=== PATIENT | female | born 1965 | race Caucasian/White ===

== ENCOUNTER 2021-11-05 10:09 | Emergency (ER) | payer OTHER, SELFPAY ==
[2021-11-05 10:22] VITALS: BP 148/78; PULSE 66; RESP 18; TEMP 36.3; O2SAT 98
--- NOTE | 2021-11-05 10:47 | ED.URI ---
HPI - URI/Sore Throat General Chief Complaint: Upper Respiratory Infection Stated Complaint: Cough Time Seen by Provider: 11/05/21 10:32 Source: patient and RN notes reviewed Mode of arrival: ambulatory Limitations: no limitations History of Present Illness HPI Narrative: Patient presents today complaining of an 8-day history of cough. Associated symptoms include mild intermittent shortness of breath, headache and fatigue. At the beginning of her illness she complained of rhinorrhea and congestion, which have since resolved. Patient has been taking DayQuil, NyQuil, and Mucinex without relief. 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 History of A. fib and COPD. Smokes 1 pack/day. MD elicited complaint: cough Related Data Home Medications Medication Instructions Recorded Confirmed apixaban [Eliquis] 5 mg PO DAILY 11/05/21 11/05/21 atorvastatin 20 mg PO DAILY 11/05/21 11/05/21 gabapentin 600 mg PO DAILY 11/05/21 11/05/21 lisinopril 20 mg PO DAILY 11/05/21 11/05/21 metoprolol tartrate 25 mg PO DAILY 11/05/21 11/05/21 zolpidem 5 mg PO PRN PRN 11/05/21 11/05/21 Allergies Allergy/AdvReac Type Severity Reaction Status Date / Time No Known Allergies Allergy Verified 11/05/21 10:33 Review of Systems Review of Systems: CONSTITUTIONAL: Denies body aches, fever, chills, or sweats.+ Fatigue EYES: Denies visual changes, redness, or discharge. ENT: Denies rhinorrhea, congestion, sore throat, or otalgia. CARDIOVASCULAR: Denies chest pain, palpitations, or edema. RESPIRATORY: + Cough, shortness of breath GASTROINTESTINAL: Denies abdominal pain, nausea, vomiting, or diarrhea. GENITOURINARY: Denies dysuria or hematuria. SKIN: Denies rash, itching, or wounds. MUSCULOSKELETAL: Denies back pain, joint pain, or myalgia. NEUROLOGIC: Denies numbness, tingling, or weakness.+ Headache PSYCH: Denies depression or anxiety. [facility] Past Medical History Medical History (Updated 11/05/21 @ 10:55 by Ruth Santiago, [employer], [employer]) A-fib COPD (chronic obstructive pulmonary disease) High cholesterol Social History Social History (Updated 11/05/21 @ 10:53 by Ruth Santiago, [facility], ) Smoking packs per day: 1 Smoking cigarettes per day: 20.0 Smoking status: Current every day smoker Tobacco type: cigarettes Comments At time of signature, I have reviewed and agree with nursing past medical, surgical, social and family history unless otherwise noted. Please see nursing chart for further information. There is no relevant family history pertinent to the presenting complaint Exam Narrative: GENERAL: Well-appearing, well-nourished, and in no acute distress. HEAD: Normocephalic, atraumatic. EYES: EOMI. No redness or drainage. Conjunctivae normal. ENT: Mucous membranes pink and moist. Nares clear. No rhinorrhea. TMs normal bilaterally with bilateral middle ear effusions without evidence of infection. Throat normal. Uvula midline. NECK: Normal AROM. Supple. No lymphadenopathy. CHEST: No respiratory distress. Clear to auscultation. HEART: Regular rate and rhythm. No murmur appreciated. Normal peripheral pulses. EXTREMITIES: Normal range of motion. No edema. SKIN: Warm, dry, no rash. Capillary refill normal. Normal skin turgor. NEURO: No focal deficits. Alert and oriented x3. Gait steady. PSYCH: Normal affect. No signs of depression or anxiety. Course Course Level of Care: Express Care Visit Vital Signs Vital signs: Vital Signs Temperature 97.4 F L 11/05/21 10:22 Pulse Rate 66 11/05/21 10:22 Respiratory Rate 18 11/05/21 10:22 Blood Pressure 148/78 H 11/05/21 10:22 Pulse Oximetry 98 11/05/21 10:22 Temperature 97.4 F L 11/05/21 10:22 Pulse Rate 66 11/05/21 10:22 Respiratory Rate 18 11/05/21 10:22 Blood Pressure 148/78 H 11/05/21 10:22 Pulse Oximetry 98 11/05/21 10:22 Reviewed. Pt has been instructed to follow up with her PCP regarding her elevated blood pressure today. KWAKU JUAREZ
== END 2021-11-05 10:57 | disposition home or self-care (01) ==
PROVIDERS: Emergency Provider Nurse Practitioner; PCP Internal Medicine
DX: J44.1 Chronic obstructive pulmonary disease with (acute) exacerbation (principal); I48.91 Unspecified atrial fibrillation; F17.210 Nicotine dependence, cigarettes, uncomplicated; Z79.01 Long term (current) use of anticoagulants
CPT/HCPCS: 87804; 99203; G0463

== ENCOUNTER 2024-08-07 16:49 | Emergency (ER) | payer OTHER, SELFPAY ==
--- OUTSIDE RECORDS SUMMARY | 2024-08-07 16:52 | XMS_ITS | Encounter Summary ---
Author Organization [facility] Healthcare Address [address] [place] [id number] Care Team Providers Care Ski Technician Name Role Phone Gaurang Sommers MD Primary Care Provider [phone] Elvi Toussaint MD Unavailable [phone] Deni Lay MD Unavailable [phone] Reason for Visit * Reason Onset Date Comments Ready to schedule 01/31/2022 Encounter Details Date Type Department Care Team (Late st Contact Info) Description 01/31/2022 Telephone [facility] Specialty Services [address] [place] [id number] Miscellaneous, Not In File Ready to schedule Social History Tobacco Use Types Packs/Day Years Used Date Smoking Tobacco: Every Day Cigarettes Smokeless Tobacco: Never Alcohol Use Standard Drinks/Week Comments Yes 0 (1 standard drink = 0.6 oz pur e alcohol) occasionally PHQ-2 Answer Date Recorded PHQ-2 Total Score (If total score is 3 or more points, staff should administer the PHQ-9) 0 01/05/2022 Comments No Sex and Gender Information Value Date Recorded Sex Assigned at Not on file Legal Sex Female 8:44 PM [employer] Gender Identity Female 07/12/2020 11:25 AM [employer]FFER Sexual Orientation Straight 07/12/2020 11 :25 AM [employer] 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 01/29/2022 01/31/2022 05/29/2022 3:[address] documented as of this encounter Care Teams Ski Technician Relationship Specialty Start Date End Date Gaurang Sommers MD [address] [facility] [address] [place] [address] PCP - General 09/28/16 Elvi Toussaint MD [address] [facility], [facility] [address] [place] [address] Consulting Physician Obstetrics and Gynecology 05/01/22 Deni Lay MD [address] [facility] [phone] [place] [address] Surgeon Colon and Rectal Surgery 04/02/23 documented as of this encounter
--- OUTSIDE RECORDS SUMMARY | 2024-08-07 16:52 | XMS_ITS | Referral Summary ---
Author Organization [facility] Address [address] [place] [address] Care Team Providers Care Child Protective Investigator Name Role Phone Gaurang Sommers MD Primary Care Provider Elvi Toussaint MD Unavailable Deni Lay MD Unavailable [phone] Encounters Date Type Department Care Team Description 08/07/2024 Nurse Triage [facility] [address] [facility] [address] [place] [id number] Armida Carlton RN 07/29/2024 2:56 PM CHARACTER ACTRESS - 07/29/2024 11:59 PM CHARACTER ACTRESS Hospital Encounter [facility] Cardiac Diagnostic Lab [address] [facility] 8th [place] [phone] Paroxysmal atrial fibrillation (CMS/HCC) (HCC) Discharge Disposition: Discharge to home or self care 07/23/2024 10:00 AM CHARACTER ACTRESS Ancillary Procedure [facility] [address] [place] [address] 3 [address] [place] [address] Paroxysmal atrial fibrillation (CMS/HCC) (HCC) 07/23/2024 8:45 AM CHARACTER ACTRESS Office Visit [facility] Cardiology [address] [place] [address] Medical Office Building 3 [address] [place] [address] Jose Angel Lundberg MD Paroxysmal atrial fibrillation (CMS/HCC) (HCC) 07/15/2024 Telephone [facility] Cardiology [address] [facility] 8th [place] [address] [place] [address] Terri Lopes 07/03/2024 11:35 AM CHARACTER ACTRESS Lab [facility] [address] [place] [phone] Fatigue, unspecified type 07/03/2024 10:15 AM CHARACTER ACTRESS Office Visit [facility] [address] [place] [address] [address] [place] [address] Gaurang Sommers MD Essential hypertension (Primary Dx); Paroxysmal atrial fibrillation (CMS/HCC) (HCC); Snoring; Fatigue, unspecified type 06/30/2024 Nurse Triage [address] [place] [address] Ida Meeks RN 06/27/2024 10:01 AM CHARACTER ACTRESS - 06/27/2024 11:59 PM CHARACTER ACTRESS Hospital Encounter [facility] ([facility]) [address] [place] [phone] Gaurang Sommers MD Tobacco abuse disorder Discharge Disposition: Discharge to home or self care 06/22/2024 Telephone [facility] ([facility]) [address] [place] [id number] Marifer Jack RT 06/19/2024 10:14 AM CHARACTER ACTRESS - 06/19/2024 11:59 PM CHARACTER ACTRESS Hospital Encounter [facility] ([facility]) [address] [place] [phone] Screening mammogram, encounter for Discharge Disposition: Discharge to home or self care from Last 3 Months Allergies Active Allergy Reactions Criticality Noted Date Comments Pantoprazole Rash Medium 03/27/2022 Medications famotidine (PEPCID) 20 mg tabletIndicat ions:Dark stools,Abdomi nal pain Take 1-2 tablets (20-40 mg total) by mouth fire extinguisher charger before breakfast 90 tablet 1 10/26/19 23 Active albuterol HFA (ProAir HFA) 90 mcg/actuation inhaler Inhale 2 puffs every 4 (four) hours as needed for wheezing or shortness of breath 3 each 4 02/14/20 24 025 Active zolpidem (AMBIEN) 5 mg tablet TAKE ONE TABLET BY MOUTH NIGHTLY 90 tablet 1 02/18/20 24 Active Eliquis 5 mg tablet TAKE ONE TABLET BY MOUTH TWICE A DAY 200 tablet 06/11/20 24 Active atorvastatin (LIPITOR) 20 mg tablet TAKE ONE TABLET BY MOUTH EVERY DAY 100 tablet 06/11/20 24 Active lisinopriL (PRINIVIL,ZES TRIL) 20 mg tablet TAKE ONE TABLET BY MOUTH EVERY DAY 90 tablet 1 06/30/20 24 Active chlorthalidon e (HYGROTON) 25 mg tablet Take 1 tablet (25 mg total) by mouth daily 90 tablet 3 07/03/19 25 026 Active Additional Information Patient not taking.Reported on 07/23/2024 omega [id number] h oil 300-1,000 mg capsule 1 capsule daily 3,000 mg daily Active gabapentin (NEURONTIN) 600 mg tablet TAKE ONE-HALF TABLET BY MOUTH NIGHTLY 50 tablet 1 08/06/19 25 Active metoprolol tartrate (LOPRESSOR) 25 mg immediate release tablet TAKE ONE TABLET BY MOUTH TWICE A DAY 180 tablet 1 08/06/19 25 Active varenicline tartrate (CHANTIX) 1 mg tabletIndicat ions:Smoking Cessation Take 1 tablet (1 mg total) by mouth 2 (two) times a day Take with full glass of water. 60 tablet 5 08/19/19 24 025 Discontinued(Th erapy completed) metoprolol tartrate (LOPRESSOR) 25 mg immediate release tablet TAKE ONE TABLET BY MOUTH TWICE A DAY 180 tablet 1 02/17/20 24 025 Discontinued gabapentin (NEURONTIN) 600 mg tablet TAKE ONE-HALF TABLET BY MOUTH NIGHTLY 50 tablet 05/22/20 24 025 Discontinued Active Problems Patient Care Coordination No te Formatting of this note migh t be different from the original. Leny Rooney NP 07/30/2023 14:26 This is a 58-year-old patient presenting to the clinic today in consultation for pulmonary nodule. She was referred to the clinic by Dr. Gaurang Sommers. She has a past medical history significant for anxiety, atrial fibrillation, COPD, hypertension, and hyperlipidemia. She is a current, everyday half a pack per day smoker. She is here for further surgical evaluation and discussion. She was last seen in Dr. Sommers's office on 06/18/2023 and his note reveals: Assessment & Plan: Hypertension is controlled. Continue current regimen. Reviewed proper diet. Continue statin therapy.Continue metoprolol and Eliquis for atrial fibrillation. She is current on colonoscopy and mammogram. Advised tobacco cessation. Arrange CT for lung cancer screening. Orders: - CBC with auto differential; Future - Comprehensive metabolic panel; Future - Lipid panel; Future - Hemoglobin A1c; Future - TSH reflex to free T4; Future Tobacco use (Z72.0) - CT Lung Cancer Screening; Future Other orders - doxycycline hyclate (VIBRAMYCIN) 50 mg capsule; Take 1 capsule (50 mg total) by mouth daily She underwent a CT scan of the chest on 06/28/2023 which reveals: FINDINGS: Lung nodules or findings of lung cancer: 5 mm polypoid nodule along anterior wall of the left main bronchus (position 438.1). 3 mm right lower lobe nodule (position 415.7). 2 mm left lower lobe nodule (465.4). Smoking related lung disease: None. Other findings: Multivessel coronary artery calcification. Hepatic steatosis. IMPRESSION: LungRADS Category Suspicious - 4A due to a tracheal nodule that might be due to adherent mucus but is indeterminate. Recommend follow-up with Low dose CT of chest in 3 months. ADDENDUM: Addendum issued at 06/28/2023 3:[address] Rucker. This addendum is to clarify that the airway nodule is in the left main bronchus as stated in the Findings section, not in the trachea as was incorrectly stated in the Impression. After the imaging was read and Dr. Sommers discussed findings with the patient, Cardiothoracic surgery was consulted. All imaging is available on file for review. She is here for further surgical discussion and evaluation Problem Noted Date Diagnosed Date Snoring 07/03/2024 Assessment & Plan (07/03/2024 10:24 AM CHARACTER ACTRESS): Refer for Sleep Study. Hyperglycemia 12/23/2023 Assessment & Plan (07/03/2024 10:08 AM CHARACTER ACTRESS): Reviewed diet and exercise goals. Assessment & Plan (12/23/2023 5:15 PM CDT): Reviewed diet and exercise goals. Order HgbA1C. Lung nodule seen on imaging study 08/05/2023 Diverticulitis 02/15/2023 Assessment & Plan (02/16/2023 1:07 PM CDT): - Will continue ceftriaxone/flagyl for now. Analgesia with scheduled tylenol and prn po or IV opioids for severe pain - tolerated clears; trial full liquid diet - unclear if she truly had diverticulitis previously in October - however, may be reasonable to refer to CRS at discharge for surgical consideration as an outpt - tobacco cessation will be important too Melena 11/01/2022 Gastroesophageal reflux disease 01/05/2022 Assessment & Plan (12/23/2023 5:13 PM CDT): Reviewed dietary modifications. Continue famotidine. Assessment & Plan (02/15/2023 1:28 PM CDT): Continue H2 angella Assessment & Plan (01/05/2022 6:18 AM CDT): Symptoms are not controlled. Symptoms are refractory to OTC meds. Start pantoprazole BID and refer for EGD. Abdominal pain 01/05/2022 Assessment & Plan (03/12/2023 1:48 PM CDT): Reviewed recent colonoscopy. Reviewed CT abdomen in January showing uncomplicated diverticulitis. Reviewed fiber goals.Prescription for antibiotics for travel. Tobacco abuse disorder 10/03/2018 Assessment & Plan (12/24/2023 10:42 AM CDT): Advised tobacco cessation. Continue lung cancer screening trial. Assessment & Plan (02/16/2023 1:06 PM CDT): continued counseling regarding cessation particularly with the diverticulitis. Paroxysmal atrial fibrillation (CMS/HCC) 019 Assessment & Plan (07/03/2024 10:23 AM CHARACTER ACTRESS): Atrial fibrillation likely from URI/OTC meds. Symptoms are improved. She is in NSR.Continue Eliquis. Refer to EP. Advised tobacco cessation. Assessment & Plan (12/23/2023 5:13 PM CDT): Continue rate control. Continue anticoagualtion. Assessment & Plan (03/12/2023 7:42 AM CDT): Continue rate control. Continue anticoagualtion. Assessment & Plan (02/16/2023 1:06 PM CDT): Continue metoprolol, eliquis Assessment & Plan (02/26/2020 7:22 AM CDT): Continue rate control. Continue anticoagualtion. Assessment & Plan (08/25/2019 7:21 AM CHARACTER ACTRESS): Continue rate control. Continue anticoagualtion. Assessment & Plan (08/21/2018 2:27 PM CHARACTER ACTRESS): Continue metoprolol and Eliquis. She has been referred to Cardiology. Advised tobacco cessation. Myopia of both eyes 07/08/2018 Lipoma of back 03/10/2018 Physical exam 02/13/2018 Assessment & Plan (06/18/2023 10:25 AM CHARACTER ACTRESS): Hypertension is controlled. Continue current regimen. Reviewed proper diet. Continue statin therapy.Continue metoprolol and Eliquis for atrial fibrillation. She is current on colonoscopy and mammogram. Advised tobacco cessation. Arrange CT for lung cancer screening. Assessment & Plan (03/27/2022 8:33 AM CDT): Hypertension is controlled. Continue current regimen. Reviewed proper diet. Continue statin therapy.Continue metoprolol and Eliquis for atrial fibrillation. She is current on colonoscopy and mammogram. Advised tobacco cessation. Assessment & Plan (03/21/2021 3:31 PM CDT): Hypertension is controlled. Continue current regimen. Reviewed proper diet. Continue statin therapy.Continue metoprolol and Eliquis for atrial fibrillation. She is current on colonoscopy and mammogram. Advised tobacco cessation. Assessment & Plan (02/19/2019 1:45 PM CDT): Reviewed diet and exercise goals. Await Annual labs. Reviewed immunization and screening status. She is current on mammogram and colonoscopy. Hypertension is controlled. Continue current regimen. Reviewed proper diet. Continue statin therapy. Continue rate control. Continue anticoagualtion. Advised tobacco cessation. Treat bronchitis with doxycycline and proair Adjustment disorder with depressed mood 08/15/19 18 Assessment & Plan (08/15/2017 1:14 PM CHARACTER ACTRESS): Problem controlled. Continue Wellbutrin. Essential hypertension 02/12/2017 Assessment & Plan (07/03/2024 5:17 AM CHARACTER ACTRESS): Uncontrolled blood pressures at home. Add chlorthalidone. Assessment & Plan (12/23/2023 5:12 PM CDT): Hypertension is controlled. Continue current regimen. Assessment & Plan (03/12/2023 7:41 AM CDT): Hypertension is controlled. Continue current regimen. Assessment & Plan (02/16/2023 1:05 PM CDT): Cont home lisinopril Assessment & Plan (01/05/2022 6:17 AM CDT): Hypertension is controlled. Continue current regimen. Reviewed her creatinine was 0.7 on 03/21/21. Assessment & Plan (02/26/2020 7:21 AM CDT): Hypertension is controlled. Continue current regimen. Assessment & Plan (08/25/2019 7:21 AM CHARACTER ACTRESS): Hypertension is controlled. Continue current regimen. Assessment & Plan (08/21/2018 12:47 PM CHARACTER ACTRESS): Hypertension is controlled. Continue current regimen. Assessment & Plan (08/15/2017 1:14 PM CHARACTER ACTRESS): Hypertension is controlled. Continue current regimen. Assessment & Plan (04/17/2017 12:29 PM CDT): Hypertension is controlled. Continue current regimen. Reviewed low sodium diet. Hyperlipidemia 02/12/2017 Assessment & Plan (12/23/2023 5:12 PM CDT): Continue atorvastatin. Order lipid panel. Assessment & Plan (02/15/2023 1:27 PM CDT): Continue statin Assessment & Plan (02/26/2020 7:21 AM CDT): Reviewed proper diet. Continue statin therapy. Assessment & Plan (08/25/2019 7:21 AM CHARACTER ACTRESS): Reviewed proper diet. Continue statin therapy. Assessment & Plan (08/21/2018 12:46 PM CHARACTER ACTRESS): Reviewed proper diet. Continue statin therapy. Assessment & Plan (08/15/2017 1:14 PM CHARACTER ACTRESS): Reviewed proper diet. Continue statin therapy. Routine eye exam 02/12/2017 Assessment & Plan (02/13/2018 2:27 PM CDT): Reviewed diet and exercise goals. Await Annual labs. Reviewed immunization and screening status. Advised Annual Mammogram. Hypertension is controlled. Continue current regimen. Reviewed proper diet. Continue statin therapy. Continue wellbutrin for adjustment disorder. She is current on colonoscopy. Advised tobacco cessation. Assessment & Plan (02/12/2017 10:48 AM CDT): Reviewed diet and exercise goals. Await Annual labs. Reviewed immunization and screening status.Hypertension is controlled. Continue current regimen. Reviewed low sodium diet. Reviewed proper diet. Continue statin therapy. Continue wellbutrin for depression. Menopausal symptom 07/05/2016 Resolved Problems Problem Noted Date Diagnosed Date Resolved Date Skin tag 03/10/2018 03/10/2018 Immunizations Name Administration Dates Next Due IPV 04/02/2017,04/02/2017 Influenza, Quadrivalent, Spl it, Preservative Free, Intramuscular 03/31/2016,03/31/2015 Influenza, Trivalent, IM (MDV) 03/31/2014 Influenza, Unspecified 04/24/2019,2018,03/31/2018,03/31,04/02/2017,04/02/2017 Pfizer SARS-CoV-2 Monovalent Vaccination (12+ Yrs) PURPLE 07/19/2020,06/28/2020 Pfizer Sars-Cov-2 Bivalent V accination (12+ YRS) 04/21/2024 Tetanus toxoid, adsorbed 12/31/2005,12/31/2005 Social History Tobacco Use Types Packs/Day Years Used Date Smoking Tobacco: Every Day Cigarettes Smokeless Tobacco: Never Tobacco Cessation:Ready to Q uit: Not Asked; Counseling Given: Not Answered Alcohol Use Standard Drinks/Week Comments Yes 0 (1 standard drink = 0.6 oz pur e alcohol) occasionally AUDIT-C Answer Date Recorded Q1: How often do you have a drink containing alc ohol? 2-4 times a month 08/05/2023 Q2: How many drinks containi ng alcohol do you have on a typical day when you are drinking? 1 or 2 08/05/2023 Q3: How often do you have si x or more drinks on one occasion? Never 08/05/2023 PHQ-2 Answer Date Recorded PHQ-2 Total Score (If total score is 3 or more points, staff should administer the PHQ-9) 0 12/24/2023 Personal Safety Answer Date Recorded Have you ever been in or are you currently in a harmful physical or emotional relationship or is someone making you feel afraid or unsafe? 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 Not on file Not on file Last Filed Vital Signs Vital Sign Reading Time Taken Comments Blood Pressure 112/84 07/23/2024 8:29 AM CHARACTER ACTRESS Pulse 62 07/23/2024 8:29 AM CHARACTER ACTRESS Temperature 36.1 C (97 F) 07/03/2024 10:03 AM CHARACTER ACTRESS Respiratory Rate 18 07/03/2024 10:03 AM CHARACTER ACTRESS Oxygen Saturation 98% 07/23/2024 8:29 AM CHARACTER ACTRESS Inhaled Oxygen Concentration - - Weight 85.7 kg (189 lb) 07/23/2024 8:29 AM CHARACTER ACTRESS Height 167.6 cm (5' 6 ) 07/23/2024 8:29 AM CHARACTER ACTRESS Body Mass Index 30.51 07/23/2024 8:29 AM CHARACTER ACTRESS Plan of Treatment Scheduled Procedures Name Priority Associated Diagnoses Date/Ti me COLONOSCOPY Dark stools Flecks of blood in stool Abdominal pain Procedures Procedure Name Priority Date/Time Associated Diagnosis Comments TRANSTHORACIC ECHO (TTE) COMPLETE W DOPPLER/CF W CONTRAST Routine 07/29/2024 4:07 PM CHARACTER ACTRESS Paroxysmal atrial fibrillation (CMS/HCC) (HCC) MCT - MOBILE CARDIAC TELEMETRY EVENT MONITOR Routine 07/23/2024 10:10 AM CHARACTER ACTRESS Paroxysmal atrial fibrillation (CMS/HCC) (HCC) ECG 12-LEAD Routine 07/23/2024 8:32 AM CHARACTER ACTRESS Paroxysmal atrial fibrillation (CMS/HCC) (HCC) EGFR Routine 07/03/2024 11:18 AM CHARACTER ACTRESS Fatigue, unspecified type THYROID FUNCTION CASCADE Routine 07/03/2024 11:18 AM CHARACTER ACTRESS Fatigue, unspecified type CBC WITHOUT DIFFERENTIAL Routine 07/03/2024 11:18 AM CHARACTER ACTRESS Fatigue, unspecified type COMPREHENSIVE METABOLIC PANEL Routine 07/03/2024 11:18 AM CHARACTER ACTRESS Fatigue, unspecified type CT LUNG CANCER SCREENING Schedule Routine, Read Routine (OP Routine) 06/27/2024 10:19 AM CHARACTER ACTRESS Tobacco abuse disorder SCREENING MAMMOGRAM BILATERAL W JAMES Schedule Routine, Read Routine (OP Routine) 06/19/2024 10:34 AM CHARACTER ACTRESS Screening mammogram, encounter for COLONOSCOPY 11/05/2022 8:55 AM CDT PAP AND HIGH RISK HPV, REFLEX TO GENOTYPING Routine 04/15/2020 3:16 PM CDT Screening for cervical cancer HEPATITIS C ANTIBODY Routine 02/13/2018 2:41 PM CDT Encounter for hepatitis C screening test for low risk patient from Last 3 Months or Most Recently Relevant to Health Maintenance Results * TRANSTHORACIC ECHO (TTE) COMPLETE W DOPPLER/CF W CONTRAST (07/29/2024 4:07 PM CHARACTER ACTRESS) LV EF 70-75 % CONS SCIMAGE Anatomical Region Laterality Modality Ultrasound 07/29/2024 3:01 PM CHARACTER ACTRESS Narrative 07/29/2024 4:32 PM CHARACTER ACTRESS [facility] Card[place] [address] Transthoracic Echocardiographic Report Patient Name: LISA GALLO L : 1965 (59y 3m) Gender: F Study Date: 07/29/2024 03:01:40 PM Ht(Inch): 66 Wt(Lb): 188.93 BSA: 2 Yield Analyst: Alesia Ballard Location: [facility] Order Provider: JOSE ANGEL LUNDBERG Heart Rate: 121 BMI: 30.49 BP: 135 / 108 Quality: The study images were of technically good quality. Ref Provider: JOSE ANGEL LUNDBERG PROCEDURES: Echocardiographic Report: [id number]) Transthoracic complete echo with contrast, 2D, spectral and tissue Doppler, color flow Doppler, M-mode. Contrast: Contrast Enhancement was Employed: After initial imaging due to sub- optimal quality related to co-morbidity defined by patient's body habitus. 0.6 ml Optison Administered, (2.4 ml wasted). INDICATIONS: Paroxysmal AFIB and I48.0 Paroxysmal atrial fibrillation. MEASUREMENTS: 2D/MM Value Range Doppler Value Range LVIDd 2D 4.06 cm [ 3.80 - 5.20 ] AV Peak Agusto 1.98 m/s [ 1.00 - 1.70 ] LVIDs 2D 2.53 cm [ 2.20 - 3.50 ] AV Peak PG 15.68 IVSd 2D 1.27 cm [ 0.60 - 0.90 ] AV Mean PG 8.20 mmHg LVPWd 2D 1.30 cm [ 0.60 - 0.90 ] AV VTI 29.75 cm LV Thickness Ratio 0.98 [ 1.50 - 3.00 ] LVOT Peak Agusto 1.21 m/s [ 0.70 - 1.10 ] LV FS 2D 37.74 % [ 27.00 - 45.00 ] LVOT Peak PG 5.86 LV Mass 2D 189.53 g LVOT Mean PG 3.43 mmHg LV Mass Index 2D 94.76 g/m2 LVOT VTI 20.37 cm RWT 0.64 LVOT Diam 1.94 cm LV EDV 2D 72.52 DEBBIE VTI 2.02 cm2 LV ESV 2D 22.99 DEBBIE Vmax 1.81 cm2 Estimated EF 70-75 % LVOT/AV VTI 0.68 - Dimensionless index (DVI) LA Length 2C 5.92 cm RV S` 18.08 cm/sec LA Length 4C 5.75 cm PV Peak Agusto 0.88 m/s [ 0.40 - 0.80 ] LA Volume 2C 40.7 ml PV Peak PG 3.10 LA Volume 4C 75.2 ml PV Accel Time 49.48 msec [ 103.00 - 142.00 ] LA Volume BP 58.53 ml PV Accel [place] 1683.29 cm/sec2 LA Volume Index 29.26 ml/m2 RV Base Dimen 2D 3.5 cm [ 2.5 - 4.2 ] TAPSE 1.52 cm [ 1.71 - 5.00 ] RA Area 12.00 cm/m2 [ 10.00 - 18.00 ] RA Volume 24.66 ml RA Volume Index 12.33 ml/m2 AoR Diam 2D 3.49 cm [ 2.70 - 3.70 ] Ao Root Index 1.74 cm/m2 Asc Ao Diam 2D 3.50 cm Asc Ao Index 1.75 cm/m2 - FINDINGS: Left Ventricle: Normal left ventricular cavity size based on 2D measurements. Concentric LV remodeling. There is hyperdynamic left ventricular systolic function. The Ejection Fraction is estimated to be 70-75 %. Right Ventricle: Normal right ventricular size. Left Atrium: The left atrium is normal in size. Right Atrium: The right atrium is normal in size. Atrial Septum: There is severe lipomatous hypertrophy of the atrial septum. Mitral Valve: There is mild mitral valve regurgitation. Aortic Valve: No aortic valve stenosis. Tricuspid Valve: There is mild tricuspid regurgitation. The estimated pulmonary artery systolic pressure is 25 mmHg. Pulmonic Valve: Normal appearance of the pulmonic valve leaflets without evidence stenosis. Pericardium: Small pericardial effusion. Aorta: There is mild aortic root dilation. The aortic root is normal in size when indexed. The ascending aorta is normal in size when indexed. Rhythm: The rhythm during the study was atrial fibrillation. CONCLUSIONS: 1. Normal left ventricular cavity size based on 2D measurements. Concentric LV remodeling. There is hyperdynamic left ventricular systolic function. The Ejection Fraction is estimated to be 70-75 %. 2. Normal right ventricular size. 3. The left atrium is normal in size. 4. The right atrium is normal in size. 5. There is mild mitral valve regurgitation. 6. No aortic valve stenosis. 7. There is mild tricuspid regurgitation. 8. Normal appearance of the pulmonic valve leaflets without evidence stenosis. 9. Small pericardial effusion. 10. There is mild aortic root dilation. The aortic root is normal in size when indexed. ATTESTATION: I have reviewed and interpreted the pertinent images and measurements of this study. I attest to the conclusions in the final report that is provided above. DISCLAIMER: The study images and the final report will be retained in the patient chart by the Echo Laboratory for the legally required time period. This chart constitutes the legal record of any testing performed. Electronically Signed By: Eliseo Toscano MD 07/29/2024 4:31:39 PM CHARACTER ACTRESS Electronically Signed By: Eliseo Toscano MD 07/29/2024 4:31:39 PM CHARACTER ACTRESS Procedure Note Eliseo Toscano MD - 07/29/2024 [facility] [place] [address] [place] [address] Transthoracic Echocardiographic Report Patient Name: LISA GALLO L : 1965 (59y 3m) Gender: F Study Date: 07/29/2024 03:01:40 PM Ht(Inch): 66 Wt(Lb): 188.93 BSA: 2 Yield Analyst: Alesia Ballard Location: [facility] Order Provider:JOSE ANGEL LUNDBERG Heart Rate: 121 BMI: 30.49 BP: 135 / 108 Quality: The study images wereof technically good quality. Ref Provider: JOSE ANGEL LUNDBERG PROCEDURES: Echocardiographic Report: ([id number]) Transthoracic complete echo withcontrast, 2D, spectral and tissue Doppler, color flow Doppler, M-mode. Contrast: Contrast Enhancement was Employed: After initial imaging due tosub- optimal quality related to co-morbidity defined by patient's body habitus. 0.6 mlOptison Administered, (2.4 ml wasted). INDICATIONS: Paroxysmal AFIB and I48.0 Paroxysmal atrial fibrillation. MEASUREMENTS: 2D/MM Value Range DopplerValue Range LVIDd 2D 4.06 cm [ 3.80 - 5.20 ] AV Peak Vel1.98 m/s [ 1.00 - 1.70 ] LVIDs 2D 2.53 cm [ 2.20 - 3.50 ] AV Peak PG15.68 IVSd 2D 1.27 cm [ 0.60 - 0.90 ] AV Mean PG8.20 mmHg LVPWd 2D 1.30 cm [ 0.60 - 0.90 ] AV VTI29.75 cm LV Thickness Ratio 0.98 [ 1.50 - 3.00 ] LVOT Peak Vel1.21 m/s [ 0.70 - 1.10 ] LV FS 2D 37.74 % [ 27.00 - 45.00 ] LVOT Peak PG5.86 LV Mass 2D 189.53 g LVOT Mean PG3.43 mmHg LV Mass Index 2D 94.76 g/m2 LVOT VTI20.37 cm RWT 0.64 LVOT Diam1.94 cm LV EDV 2D 72.52 DEBBIE VTI2.02 cm2 LV ESV 2D 22.99 DEBBIE Vmax1.81 cm2 Estimated EF 70-75 % LVOT/AV VTI0.68 - Dimensionless index (DVI) LA Length 2C 5.92 cm RV S`18.08 cm/sec LA Length 4C 5.75 cm PV Peak Vel0.88 m/s [ 0.40 - 0.80 ] LA Volume 2C 40.7 ml PV Peak PG3.10 LA Volume 4C 75.2 ml PV Accel Time49.48 msec [ 103.00 - 142.00 ] LA Volume BP 58.53 ml PV Accel [id number] cm/sec2 LA Volume Index29.26 ml/m2 RV Base Dimen 2D 3.5 cm [ 2.5 - 4.2 ] TAPSE 1.52 cm [ 1.71 - 5.00 ] RA Area 12.00 cm/m2 [ 10.00 - 18.00 ] RA Jdtljh04.66 ml RA Volume Index12.33 ml/m2 AoR Diam 2D 3.49 cm [ 2.70 - 3.70 ] Ao Root Index1.74 cm/m2 Asc Ao Diam 2D3.50 cm Asc Ao Index1.75 cm/m2 - FINDINGS: Left Ventricle: Normal left ventricular cavity size based on 2Dmeasurements. Concentric LV remodeling. There is hyperdynamic left ventricular systolic function.The Ejection Fraction is estimated to be 70-75 %. Right Ventricle: Normal right ventricular size. Left Atrium: The left atrium is normal in size. Right Atrium: The right atrium is normal in size. Atrial Septum: There is severe lipomatous hypertrophy of the atrialseptum. Mitral Valve: There is mild mitral valve regurgitation. Aortic Valve: No aortic valve stenosis. Tricuspid Valve: There is mild tricuspid regurgitation. The estimatedpulmonary artery systolic pressure is 25 mmHg. Pulmonic Valve: Normal appearance of the pulmonic valve leaflets withoutevidence stenosis. Pericardium: Small pericardial effusion. Aorta: There is mild aortic root dilation. The aortic root is normal insize when indexed. The ascending aorta is normal in size when indexed. Rhythm: The rhythm during the study was atrial fibrillation. CONCLUSIONS: 1. Normal left ventricular cavity size based on 2D measurements.Concentric LV remodeling. There is hyperdynamic left ventricular systolic function. TheEjection Fraction is estimated to be 70-75 %. 2. Normal right ventricular size. 3. The left atrium is normal in size. 4. The right atrium is normal in size. 5. There is mild mitral valve regurgitation. 6. No aortic valve stenosis. 7. There is mild tricuspid regurgitation. 8. Normal appearance of the pulmonic valve leaflets without evidencestenosis. 9. Small pericardial effusion. 10. There is mild aortic root dilation. The aortic root is normal in sizewhen indexed. ATTESTATION: I have reviewed and interpreted the pertinent images and measurements ofthis study. I attest to the conclusions in the final report that is provided above. DISCLAIMER: The study images and the final report will be retained in the patientchart by the [facility] for the legally required time period. This chart constitutesthe legal record of any testing performed. Electronically Signed By: Eliseo Toscano MD 07/29/2024 4:31:39 PM CHARACTER ACTRESS Electronically Signed By: Eliseo Toscano MD 07/29/2024 4:31:39 PM CHARACTER ACTRESS us Jose Angel Lundberg MD CV ECHO PROCEDURES Leigh l Result * MCT Mobile Cardiac Telemetry Event Monitor (07/23/2024 10:10 AM CHARACTER ACTRESS) Anatomical Region Laterality Modality Electrocardiogra phy 07/23/2024 10:0 0 AM CHARACTER ACTRESS Narrative 08/03/2024 2:36 PM CHARACTER ACTRESS Patient name: Lisa Gallo Date of test: 07/23/2024 Type of Test: Event Monitor ([facility]) [facility] #: 0 Location: [facility] : 1965 Age: 59 Sex: F Ref Physician(s): JOSE ANGEL LUNDBERG MD Interpreted by: Rhonda Martinez MD EndoDexUp Tech: Preventice Monitoring Service Diagnosis: Monitoring Service: Preventice Reason for Test: I48.0: Paroxysmal atrial fibrillation Monitor Used: Body Guardian Heart ([facility]) [id number] Enrollment Period: Jul 25 - Jul 31, 2024 TrueFacet comments: Patient Instructions: Patient support person included in instructions Number of Transmissions Sent During Enrollment Period: 6 To obtain transmission tracing contact: [facility] [phone] Rhythm Summary: Afib longest duration: 00:53:48 Date Time of Afib longest episode: 07/29/2024 15:45:00 Afib shortest duration: 00:18:28 Date Time of Afib shortest episode: 07/29/2024 14:50:00 Peak avg Afib rate: 135 Bradycardia avg rate: 55 Bradycardia longest duration: 01:08:58 Bradycardia longest episode: 07/30/2024 04:02:00 Bradycardia shortest duration: 00:00:12 Bradycardia shortest episode: 07/26/2024 11:24:00 Mean heart rate: 64 Pauses >= 3 seconds: 0 Tachycardia avg rate: 104 Tachycardia longest duration: 00:00:44 Tachycardia longest episode: 07/29/2024 16:41:00 Tachycardia shortest duration: 00:00:24 Tachycardia shortest episode: 07/29/2024 16:42:00 Cardiologis Review of Transmissions: Summary: The patient's monitoring period was 07/25/2024 - 07/31/2024. Baseline sample showed Sinus Rhythm with a heart rate of 88 bpm. VPDs > 1%; APDs 3%; 1% estimated atrial fibrillation with RVR. There were 0 critical, 0 serious, and 6 stable events that occurred. The report analysis of the critical, serious, stable and manually triggered events are listed below. Manually Detected Events: 1 Stable: Ventricular Tachycardia (9 sec), Sinus Rhythm Offset * Flutter or Skipped Beats 1 Stable: Sinus Rhythm * Flutter or Skipped Beats 1 Stable: Sinus Bradycardia w/Atrial Run * Flutter or Skipped Beats 1 Stable: Atrial Fibrillation RVR * Flutter or Skipped Beats 1 Stable: Atrial Fibrillation RVR * Flutter or Skipped Beats; Shortness of Breath This study was interpreted by Rhonda Martinez MD Confirmed on 08/03/2024 - 14:36:22 by Rhonda Martinez MD Summary of Transmitted Events: # Date Time HR Symptoms/Rhythm 6 07/29/24 14:58 116.0 Flutter or Skipped Beats; ShortnesAtrial Fibrillation RVR 5 07/29/24 14:54 140.0 Flutter or Skipped Beats Atrial Fibrillation RVR 4 07/29/24 09:25 55.0 Flutter or Skipped Beats Sinus Bradycardia w/Atrial Run 3 07/27/24 07:23 68.0 Flutter or Skipped Beats Sinus Rhythm 2 07/25/24 12:32 130.0 Flutter or Skipped Beats Ventricular Tachycardia (9 sec), Sinus Rhythm Offset 1 07/25/24 09:37 88 Auto Trigger, Baseline Sinus Rhythm I have personally reviewed and interpreted this study. Procedure Note Rhonda Martinez MD - 08/03/2024 Patient name: Lisa Gallo Date of test: 07/23/2024 Type of Test: Event Monitor ([facility]) [facility] #: 0 Location: [facility] : 1965 Age: 59 Sex: F Ref Physician(s): JOSE ANGEL LUNDBERG MD Interpreted by: Rhonda Martinez MD Query Hunter Tech: [employer]ice Monitoring Service Diagnosis: Monitoring Service: Preventice Reason for Test: I48.0: Paroxysmal atrial fibrillation Monitor Used: Body [facility] Heart ([facility]) [id number] Enrollment Period: Jul 25 - Jul 31, 2024 TrueFacet comments: Patient Instructions: Patient support person included in instructions Number of Transmissions Sent During Enrollment Period: 6 To obtain transmission tracing contact: [facility] [phone] Rhythm Summary: Afib longest duration: 00:53:48 Date Time of Afib longest episode: 07/29/2024 15:45:00 Afib shortest duration: 00:18:28 Date Time of Afib shortest episode: 07/29/2024 14:50:00 Peak avg Afib rate: 135 Bradycardia avg rate: 55 Bradycardia longest duration: 01:08:58 Bradycardia longest episode: 07/30/2024 04:02:00 Bradycardia shortest duration: 00:00:12 Bradycardia shortest episode: 07/26/2024 11:24:00 Mean heart rate: 64 Pauses >= 3 seconds: 0 Tachycardia avg rate: 104 Tachycardia longest duration: 00:00:44 Tachycardia longest episode: 07/29/2024 16:41:00 Tachycardia shortest duration: 00:00:24 Tachycardia shortest episode: 07/29/2024 16:42:00 Cardiologis Review of Transmissions: Summary: The patient's monitoring period was 07/25/2024 - 07/31/2024. Baseline sample showed Sinus Rhythm with a heart rate of 88 bpm. VPDs > 1%; APDs 3%; 1% estimated atrial fibrillation with RVR. There were 0 critical, 0 serious, and 6 stable events that occurred. The report analysis of the critical, serious, stable and manually triggered events are listed below. Manually Detected Events: 1 Stable: Ventricular Tachycardia (9 sec), Sinus Rhythm Offset * Flutter or Skipped Beats 1 Stable: Sinus Rhythm * Flutter or Skipped Beats 1 Stable: Sinus Bradycardia w/Atrial Run * Flutter or Skipped Beats 1 Stable: Atrial Fibrillation RVR * Flutter or Skipped Beats 1 Stable: Atrial Fibrillation RVR * Flutter or Skipped Beats; Shortness of Breath This study was interpreted by Rhonda Martinez MD Confirmed on 08/03/2024 - 14:36:22 by Rhonda Martinez MD Summary of Transmitted Events: # Date Time HR Symptoms/Rhythm 6 07/29/24 14:58 116.0 Flutter or Skipped Beats; ShortnesAtrial Fibrillation RVR 5 07/29/24 14:54 140.0 Flutter or Skipped Beats Atrial Fibrillation RVR 4 07/29/24 09:25 55.0 Flutter or Skipped Beats Sinus Bradycardia w/Atrial Run 3 07/27/24 07:23 68.0 Flutter or Skipped Beats Sinus Rhythm 2 07/25/24 12:32 130.0 Flutter or Skipped Beats Ventricular Tachycardia (9 sec), Sinus Rhythm Offset 1 07/25/24 09:37 88 Auto Trigger, Baseline Sinus Rhythm I have personally reviewed and interpreted this study. us Jose Angel Lundberg MD CV CARDIAC SERVICES PRO CEDURES Final Result * ECG 12 lead (07/23/2024 8:32 AM CHARACTER ACTRESS) us Jose Angel Lundberg MD ECG ORDERABLES Final R esult * eGFR (07/03/2024 11:18 AM CHARACTER ACTRESS) eGFR >90 >=60 mL/min/1. 73 m2 Comment: Interpretive Data Reference Interval Normal >/= 90 mL/min/1.73m2 Mildly decreased* 60 - 89 mL/min/1.73m2 Mildly to moderately decreased 45 - 59 mL/min/1.73m2 Moderately to severely decreased 30 - 44 mL/min/1.73m2 Severely decreased 15 - 29 mL/min/1.73m2 Kidney Failure < 15 mL/min/1.73m2 *Relative to young adult level Estimated glomerular filtration rate is determined by the 2020 CKD-EPI equation recommended by the National Kidney Foundation (A Unifying Approach to GFR Estimation: Recommendations of the NKF-ASK Task Force on Reassessing the Inclusion of Race in Diagnosing Kidney Disease, JASN 2020). The CKD-EPI equation should not be used for patients with unstable renal function and has not been validated in children and those over 70. Current interpretive data was last reviewed 2021. Blood 07/03/2024 11:1 8 AM CHARACTER ACTRESS 07/03/2024 12:19 PM CHARACTER ACTRESS Gaurang Sommers MD LAB BLOOD ORDERABLES Final Re sult Performing Organization Address [facility] Co de Phone Number [facility] [place] [address] * Thyroid Function [place] (07/03/2024 11:18 AM CHARACTER ACTRESS) TSH 0.93 0.30 - 4.20 mcIUnit/mL Blood 07/03/2024 11:1 8 AM CHARACTER ACTRESS 07/03/2024 12:14 PM CHARACTER ACTRESS Gaurang Sommers MD LAB BLOOD ORDERABLES Final Re sult Performing Organization Address [facility] Co de Phone Number [place] [facility] Department [place] [address] * (ABNORMAL) CBC without differential (07/03/2024 11:18 AM CHARACTER ACTRESS) [facility] WBC 9.1 3.8 - 9.9 K/cumm Hgb 14.2 11.9 - 15.5 g/dL [facility] Hct 42.8 35.6 - 45.5 % [facility] Plt 170 150 - 400 K/cumm [facility] MPV 12.4(H) 9.1 - 12.3 fL [facility] RBC 4.53 3.90 - 5.20 M/cumm [facility] MCV 94.5 81.3 - 96.4 fL [facility] MCH 31.3 27.1 - 33.3 pg [facility] MCHC 33.2 32.3 - 35.7 g/dL [facility] RDW CV 12.3 11.1 - 14.9 % [facility] RDW SD 42.5 35.7 - 48.1 fL [facility] NRBC abs 0.00 0.00 - 0.01 K/cumm [facility] Blood 07/03/2024 11:1 8 AM CHARACTER ACTRESS 07/03/2024 12:14 PM CHARACTER ACTRESS Gaurang Sommers MD LAB BLOOD ORDERABLES Final Re sult [facility] Department [place] [address] * (ABNORMAL) Comprehensive metabolic panel (07/03/2024 11:18 AM CHARACTER ACTRESS) [facility] Sodium 140 135 - 145 mmol/L Potassium, pl 4.9 3.3 - 4.9 mmol/L [facility] Comment:Hemolyzed; Potassium value may be falsely elevated by as much as 0.3-0.5 mmol/L. Suggest redraw and reanalysis. Chloride 105 97 - 110 mmol/L [facility] CO2 27 22 - 32 mmol/L [facility] Anion gap 8 2 - 15 mmol/L [facility] BUN 16 6 - 25 mg/dL [facility] Creatinine 0.71 0.60 - 1.10 mg/dL [facility] Glucose 95 70 - 199 mg/dL [facility] Comment: Interpretive Data Fasting glucose >/= 126 mg/dl is diagnostic for diabetes. Fasting is defined as no caloric intake for at least 8 hours. Fasting glucose between 100 mg/dl to 125 mg/dl is diagnostic of prediabetes. In a patient with classic symptoms of hyperglycemia or hyperglycemic crisis, a random glucose >/= 200 mg/dl is diagnostic for diabetes. In the absence of unequivocal hyperglycemia, results should be confirmed by repeat testing. The classification and Diagnosis of Diabetes Diabetes Care 2021; 46: S19-S40. Current interpretive data was last revised 2022. Calcium 9.6 8.5 - 10.3 mg/dL [facility] Bilirubin, total 0.5 0.1 - 1.2 mg/dL [facility] Protein, pl 7.4 6.5 - 8.5 g/dL [facility] Albumin 4.1 3.5 - 5.0 g/dL [facility] Alk phos 112 40 - 130 Units/L [facility] ALT 62(H) 7 - 45 Units/L [facility] AST 37 10 - 45 Units/L [facility] Comment:Hemolyzed; result ma y be falsely elevated Blood 07/03/2024 11:1 8 AM CHARACTER ACTRESS 07/03/2024 12:14 PM CHARACTER ACTRESS Gaurang Sommers MD LAB BLOOD ORDERABLES Final Re sult [facility] [place] [address] * CT Lung Cancer Screening (06/27/2024 10:19 AM CHARACTER ACTRESS) Anatomical Region Laterality Modality Chest N/A Computed Tomogra phy 06/28/2024 5:25 PM CHARACTER ACTRESS Impressions 06/28/2024 5:25 PM CHARACTER ACTRESS 1. LungRADS Category 2 (benign) . Recommend Low dose Screening CT of chest in 12 months. LungRADS Categories: 1 - Negative (no nodules, or only benign calcified or fat-containing nodules) 2 - Benign Appearance or Behavior (nodules with very low likelihood of becoming a clinically active cancer due to size or lack of growth) 3 - Probably Benign (probably benign findings-short term follow up suggested; includes nodules with a low likelihood of becoming a clinically active cancer) 4A,4B,4X - Suspicious (category 3 or 4 nodules with findings for which additional diagnostic testing and/or tissue sampling is recommended) S - Other (clinically significant or potentially clinically significant findings (non-lung cancer) C - Prior Lung Cancer (modifier for patients with a prior diagnosis of lung cancer who return to screening) Electronically signed by: Son Patrick M.D. Narrative 06/28/2024 5:25 PM CHARACTER ACTRESS EXAMINATION: Lung cancer screening CT of the Chest without intravenous contrast HISTORY: Lung Cancer Screening TECHNIQUE: Low radiation dose chest protocol. No intravenous contrast. Reconstructed slice width 1.[address] Dose Index 1.14 mGy. Dose-length product 43.5 mGy-cm. COMPARISON: 08/17/2023 FINDINGS: Lung nodules or findings of lung cancer: 3 mm groundglass nodule superior segment right lower lobe, stable. Smoking related lung disease: none Other findings: Coronary calcifications. Hepatic steatosis. Procedure Note Son Patrick MD - 06/28/2024 EXAMINATION: Lung cancer screening CT of the Chest without intravenous contrast HISTORY: Lung Cancer Screening TECHNIQUE: Low radiation dose chest protocol. No intravenous contrast. Reconstructed slice width 1.[address] Dose Index 1.14 mGy. Dose-length product 43.5 mGy-cm. COMPARISON: 08/17/2023 FINDINGS: Lung nodules or findings of lung cancer: 3 mm groundglass nodule superior segment right lower lobe, stable. Smoking related lung disease: none Other findings: Coronary calcifications. Hepatic steatosis. IMPRESSION: 1. LungRADS Category 2 (benign) . Recommend Low dose Screening CT of chest in 12 months. LungRADS Categories: 1 - Negative (no nodules, or only benign calcified or fat-containing nodules) 2 - Benign Appearance or Behavior (nodules with very low likelihood of becoming a clinically active cancer due to size or lack of growth) 3 - Probably Benign (probably benign findings-short term follow up suggested; includes nodules with a low likelihood of becoming a clinically active cancer) 4A,4B,4X - Suspicious (category 3 or 4 nodules with findings for which additional diagnostic testing and/or tissue sampling is recommended) S - Other (clinically significant or potentially clinically significant findings (non-lung cancer) C - Prior Lung Cancer (modifier for patients with a prior diagnosis of lung cancer who return to screening) Electronically signed by: Son Patrick M.D. Gaurang Sommers MD IMG CT PROCEDURES Final Resul t * Screening Mammogram Bilateral W James (06/19/2024 10:34 AM CHARACTER ACTRESS) Anatomical Region Laterality Modality Breast Bilateral Mammography Narrative 06/19/2024 3:29 PM CHARACTER ACTRESS Mammogram Technique: Bilateral Digital Breast Tomosynthesis, Bilateral C-view 2D Screening mammogram. Views obtained: bilateral craniocaudal and bilateral mediolateral oblique. Computer Aided Detection was performed. Mammogram Findings: The present examination has been compared to prior imaging studies performed at [facility] on 04/12/2021, 05/01/2022 and 06/05/2023. The breasts are extremely dense, which lowers the sensitivity of mammography. There is no suspicious abnormality in either breast. Impression: There is no mammographic evidence of malignancy. Annual screening mammography is recommended. Consider breast MRI for supplemental screening given the patient's extremely dense breast tissue. OVERALL FINAL ASSESSMENT: BI-RADS CATEGORY 1: Negative. Procedure Note Luz Marina Richter MD - 06/19/2024 Mammogram Technique: Bilateral Digital Breast Tomosynthesis, Bilateral C-view 2D Screening mammogram. Views obtained: bilateral craniocaudal and bilateral mediolateral oblique. Computer Aided Detection was performed. Mammogram Findings: The present examination has been compared to prior imaging studies performed at [facility] on 04/12/2021, 05/01/2022 and 06/05/2023. The breasts are extremely dense, which lowers the sensitivity of mammography. There is no suspicious abnormality in either breast. Impression: There is no mammographic evidence of malignancy. Annual screening mammography is recommended. Consider breast MRI for supplemental screening given the patient's extremely dense breasttissue. OVERALL FINAL ASSESSMENT: BI-RADS CATEGORY 1: Negative. us Self Screening Mammogram IMG MAMMO PROCEDURES Fi nal Result * COLONOSCOPY (11/05/2022 8:55 AM CDT) Anatomical Region Laterality Modality Other Narrative Procedure Note Erin Camp MD - 11/05/2022 8:55 AM CDT [facility] Patient Name: Lisa Gallo Procedure Date: 11/05/2022 8:55 AM Date of : 1965 Admit Type: Outpatient Age: 57 Gender: Female Attending MD: Erin Camp M.D. Room: [facility] ENDOSCOPY ROOM 3 Note Status: Finalized Procedure: Colonoscopy Indications: Hematochezia Referring MD: Gaurang Sommers M.D. Providers: Erin Camp M.D. Medicines: Monitored Anesthesia Care Complications: No immediate complications. Estimated Blood Loss: Estimated blood loss was minimal. Procedure: Pre-Anesthesia Assessment: - Immediately prior to administration ofmedications, the patient was re-assessed for adequacy to receive sedatives. - The risks and benefits of the procedure and the sedation options and risks were discussed with the patient. All questions were answered and informed consent was obtained. The benefits, risks and alternatives of theprocedure and sedation were discussed and informed consentwas obtained. All questions were answered. Please referto the signed informed consent document in the medical record. The scope was passed under direct vision.The [id number] endoscope was introduced through the anus and advanced to the terminal ileum. The colonoscopy was performed without difficulty. The patient tolerated the procedure well. The qualityof the bowel preparation was good. The bowelpreparation used was GoLYTELY via split dose instruction. Bowel prep was administered using a split dose. Findings: Skin tags were found on perianal exam. A 6 to 7 mm polyp was found in the cecum. The polyp was sessile. The polyp was removed with a cold snare. Resection and retrieval were complete. To prevent bleeding after the polypectomy, one hemostaticclip was successfully placed. Clip transfer worker: Dot[employer]. Therewas no bleeding at the end of the procedure. A 3 to 4 mm polyp was found in the sigmoid colon. The polyp wassessile. The polyp was removed with a jumbo cold forceps. Resection andretrieval were complete. Multiple small and large-mouthed diverticula were found in the entire colon. Internal hemorrhoids were found during retroflexion. The terminal ileum appeared normal. Scattered areas of erythematous mucosa were found in the sigmoid colon,adjacent to diverticula, possibly SCAD . Biopsies were takenwith a cold forceps for histology. Impression: - Perianal skin tags found on perianal exam. - One 6 to 7 mm polyp in the cecum, removed with a cold snare. Resected and retrieved. Clip wasplaced. Clip transfer worker: [employer]. - One 3 to 4 mm polyp in the sigmoid colon, removed with a jumbo cold forceps. Resected andretrieved. -sigmoid mucosa eryhtema - Diverticulosis in the entire examined colon. - Internal hemorrhoids. - The examined portion of the ileum was normal. Recommendation: - Await pathology results. - Repeat colonoscopy for surveillance based on pathology results. - Return to referring physician. Recommend highfiber diet, avoid constipation/straining Attending Participation: I personally performed the entire procedure. Electronically signed by Erin Camp MD Erin Camp M.D. 11/05/2022 9:32:59 AM . Number of Addenda: 0 Note Initiated On: 11/05/2022 8:55 AM Recognized by the [employer] for promoting quality in endoscopy us Erin Camp MD ENDOSCOPY PROCEDURES Final Res ult * Pap and High Risk HPV, reflex to Genotyping (04/15/2020 3:16 PM CDT) Swab 04/15/2020 3:16 PM CDT 04/15/2020 5:12 PM CDT Narrative PATHOLOGY [facility] - 04/25/2020 12:23 PM CDT EPIC results best viewed via link to PDF [facility] [place] [address] CYTOPATHOLOGY REPORT FINAL Patient Name: LISA GALLO Gender: F : 1965 (Age: 55) Address: [address] [place] [address] Hospital #: [id number] 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 Location: [facility] Patient Type: [facility] Ref Lab Taken: 04/15/2020 Received: 04/15/2020 Accessioned: 04/18/2020 Reported: 04/25/2020 Physician(s): MARY Doyle FINAL INTERPRETATION SOURCE OF SPECIMEN: Liquid based Thin Prep pap with HPV STATEMENT OF ADEQUACY: - Satisfactory for evaluation - Endocervical cells/transformation zone sample present GENERAL CATEGORY: - Negative for squamous intraepithelial lesion or malignancy DESCRIPTION: - Reactive cellular changes Comments HPV Result: NEGATIVE for high risk types of Human Papilloma Virus (HPV) RNA This probe detects the presence of HPV types: 16, 18, 31, 33, 35, 39, 45, 51, 52, 56, 58, 59, 66 and 68. This HPV test was performed at [facility] in [place], [place] utilizing the Gen-Probe Aptima assay. 04/22/2020 14:30 By this signature, I attest that the above diagnosis is based upon my personal examination of the slides(and/or other material indicated in the diagnosis). Erick Milner DO Report Electronically Reviewed and Signed Out By Erick Milner DO 04/25/2020 12:23:05 KIMBERLY Matthews, CT(ASCP)[facility] Cervicovaginal Cytology (Pap Test) Disclaimer: The Pap test is a screening test used to detect cervical cancer and its precursors; it is not a diagnostic procedure. False negative and false positive results do occur. Pap test results should be interpreted in the context of pertinent clinical information and biopsy results as indicated. Gross Description A. Liquid based Thin Prep pap with HPV: Cervical/vaginal - Screening ThinPrep-With HPV Clinical Diagnosis and History Last Menstrual Period: postmenopausal The patient is a 55 year old woman with screening. The HPV test was performed by [facility], [address] [place] [address]. Report Images and scanned documents, if included only viewable in PDF version The performance characteristics of some immunohistochemical stains, in-situ hybridization and fluorescence in-situ hybridization tests and immunophenotyping by flow cytometry cited in this report (if any) were determined by the Surgical Pathology Department at [facility] as part of an ongoing quality assurance supervisor final program and in compliance with federally mandated regulations drawn from the Clinical Laboratory Improvement Act of 1988 (CLIA '88). Some of these tests rely on the use of analyte specific reagents and are subject to specific labeling requirements by the US Food and Drug Administration. Such diagnostic tests may only be performed in a facility that is certified by the Department of Health and Human Services as a high complexity laboratory under CLIA '88. The FDA has determined that such clearance or approval is not necessary. This test is used for clinical purposes. It should not be regarded as investigational or for research. Nevertheless, federal rules concerning the medical use of analyte specific reagents require that the following disclaimer be attached to the report: This test was developed and its performance characteristics determined by the Surgical Pathology Department of [facility]. It has not been cleared or approved by the U. S. Food and Drug Administration. us Leonila Jennings NP LAB CYTOLOGY ORDERABLES Final Result PATHOLOGY [facility] 3rd Floor [place], [place] [phone] * Hepatitis C antibody (02/13/2018 2:41 PM CDT) Hep C Ab Nonreactive Nonreactive [facility] Comment: Interpretive Data Positive and greyzone results should be confirmed by a molecular method. If positive or greyzone, a second separately collected sample should be submitted for Hepatitis C Virus RNA. Detection and Quantitation by Real-Time Reverse Nuclear Supervising Operator-PCR.Current Interpretive data was last revised on 2016. Blood specimen (specimen) 02/13/2018 2:41 PM CDT 02/13/2018 5:08 PM CDT Narrative [facility] - 02/14/2018 9:01 AM CDT us Gaurang Sommers MD LAB MICROBIOLOGY - GENERAL OR DERABLES Edited Result - Final [facility] Department [place] [address] from Last 3 Months or Most Recently Relevant to Health Maintenance Insurance [facility] [employer] Address: [facility] [id number] [place] [address] [employer] Address: [facility] [id number] [place] [address] [employer] Address: [id number] [place] [id number] Advance Directives For more information, please contact: [phone] * Full Code (Latest Code Status on File) Date Activated Date Inactivated Comments 02/15/2023 3:35 PM 02/16/2023 7:41 PM * Full Code Date Activated Date Inactivated Comments 11/05/2022 7:46 AM 11/05/2022 2:17 PM * Full Code Date Activated Date Inactivated Comments 02/05/2022 12:16 PM 02/05/2022 5:25 PM * Full Code Date Activated Date Inactivated Comments 11/11/2017 8:10 AM 11/11/2017 11:26 AM Care Teams Child Protective Investigator Relationship Specialty Start Date End Date Gaurang Sommers MD [address] [facility] [address] [place] [address] PCP - General 09/28/16 Elvi Toussaint MD [address] [facility] [address] [place] [address] Consulting Physician Obstetrics and Gynecology 05/01/22 Deni Lay MD [address] [facility] [place] [id number] [place] [address] Surgeon Colon and Rectal Surgery 04/02/23
--- OUTSIDE RECORDS SUMMARY | 2024-08-07 16:52 | XMS_ITS | Encounter Summary ---
Author Organization [facility] Healthcare Address [address] [place] [address] Care Team Providers Care District Engineer Name Role Phone Gaurang Sommers MD Primary Care Provider [phone] Elvi Toussaint MD Unavailable [phone] Deni Lay MD Unavailable [phone] Reason for Visit * Reason Onset Date Comments ready to schedule 10/30/2022 Encounter Details Date Type Department Care Team (Late st Contact Info) Description 10/30/2022 Telephone [facility] Specialty Services [address] [place] [id number] Miscellaneous, Not In File ready to schedule Social History Tobacco Use Types Packs/Day Years Used Date Smoking Tobacco: Every Day Cigarettes Smokeless Tobacco: Never Alcohol Use Standard Drinks/Week Comments Yes 0 (1 standard drink = 0.6 oz pur e alcohol) occasionally AUDIT-C Answer Date Recorded Q1: How often do you have a drink containing alc ohol? 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 on file Not on file documented as of this encounter Plan of Treatment Scheduled Procedures Name Priority Associated Diagnoses Date/Ti me COLONOSCOPY Dark stools Flecks of blood in stool Abdominal pain documented as of this encounter Visit Diagnoses Not on filedocumented in this encounter Care Teams District Engineer Relationship Specialty Start Date End Date Gaurang Sommers MD [address] [facility] [address] [place] [address] PCP - General 09/28/16 Elvi Toussaint MD [address] [facility] DEPT OBGYN, [facility] [address] [place] [address] Consulting Physician Obstetrics and Gynecology 05/01/22 Deni Lay MD [address] [facility] [id number] [place] [address] Surgeon Colon and Rectal Surgery 04/02/23 documented as of this encounter
--- OUTSIDE RECORDS SUMMARY | 2024-08-07 16:52 | XMS_ITS | Encounter Summary ---
Author Organization [facility] Address [address] [place] [address] Phone Care Team Providers Care Compact Assembler Name Role Phone Gaurang Sommers MD Primary Care Provider [phone] Elvi Toussaint MD Unavailable [phone] Deni Lay MD Unavailable [phone] Encounter Details Date Type Department Care Team (Late st Contact Info) Description 07/15/2024 Telephone [facility] Cardiology [address] [facility] Advanced Medicine 8th [place] [address] [place] [address] Terri Lopes Social History Tobacco Use Types Packs/Day Years [...] on file Legal Sex Female 8:44 PM [employer]ERRYBOAT TICKET TAKER Gender Identity Female 07/12/2020 11:25 AM FERRYBOAT TICKET TAKER Sexual Orientation Straight 07/12/2020 11 :25 AM FERRYBOAT TICKET TAKER 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 YBOAT TICKET TAKER * Telephone Encounter - Terri Lopes - 07/15/2024 9:28 AM CST EP SCHEDULING Patient being referred to EP for afib. Patient saw Dr. Garcia in May 2022. No device on file. Please call to schedule. YBOAT TICKET TAKER documented in this encounter Plan of Treatment Scheduled Procedures Name Priority Associated Diagnoses Date/Ti pa COLONOSCOPY Dark stools Flecks of blood in stool Abdominal pain documented as of this encounter Visit Diagnoses Not on filedocumented in this encounter Care Teams Compact Assembler Relationship Specialty Start Date End Date Gaurang Sommers MD [address] [facility] [address] [place] [address] PCP - General 09/28/16 Elvi Toussaint MD [address] [facility] DEPT OBGYN, [address] [address] Consulting Physician Obstetrics and Gynecology 05/01/22 Deni Lay MD [address] [facility] [place] [phone] [place] [address] Surgeon Colon and Rectal Surgery 04/02/23 documented as of this encounter
--- OUTSIDE RECORDS SUMMARY | 2024-08-07 16:52 | XMS_ITS | Clinical Summary ---
Author Organization [facility] Address [address] [place] [address] Care Team Providers Care Dairy Tester Name Role Phone Gaurang Sommers MD Primary Care Provider [phone] Elvi Toussaint MD Unavailable [phone] Deni Lay MD Unavailable Allergies Active Allergy Reactions Criticality Noted Date Comments Pantoprazole Rash Medium 03/27/2022 Medications famotidine (PEPCID) 20 mg tabletIndicat ions:Dark stools,Abdomi nal pain Take 1-2 tablets (20-40 mg total) by mouth corporate services manager before breakfast 90 tablet 1 10/26/19 23 [...] TABLET BY MOUTH EVERY DAY 100 tablet 12/12/20 24 Active lisinopriL (PRINIVIL,ZES TRIL) 20 mg tablet TAKE ONE TABLET BY MOUTH EVERY DAY 90 tablet 1 06/30/20 24 Active chlorthalidon e (HYGROTON) 25 mg tablet Take 1 tablet (25 mg total) by mouth daily 90 tablet 3 07/03/19 25 026 Active Additional Information Patient not taking.Reported on 07/23/2024 omega 1-[id number]-[id number]-fis h oil 300-1,000 mg capsule 1 capsule [...] 07/03/2024 Assessment & Plan (07/03/2024 10:24 AM GRAPHICS INTERN): Refer for Sleep Study. Hyperglycemia 12/23/2023 Assessment & Plan (07/03/2024 10:08 AM GRAPHICS INTERN): Reviewed diet and exercise goals. Assessment & [...] 019 Assessment & Plan (07/03/2024 10:23 AM GRAPHICS INTERN): Atrial fibrillation likely from URI/OTC meds. Symptoms [...] anticoagualtion. Assessment & Plan (08/25/2019 7:21 AM GRAPHICS INTERN): Continue rate control. Continue anticoagualtion. Assessment & Plan (08/21/2018 2:27 PM GRAPHICS INTERN): Continue metoprolol and Eliquis. She has been referred to Cardiology. Advised tobacco cessation. Myopia of both eyes 07/08/2018 Lipoma of back 03/10/2018 Physical exam 02/13/2018 Assessment & Plan (06/18/2023 10:25 AM GRAPHICS INTERN): Hypertension is controlled. Continue current regimen. Reviewed [...] 18 Assessment & Plan (08/15/2017 1:14 PM GRAPHICS INTERN): Problem controlled. Continue Wellbutrin. Essential hypertension 02/12/2017 Assessment & Plan (07/03/2024 5:17 AM GRAPHICS INTERN): Uncontrolled blood pressures at home. Add chlorthalidone. [...] regimen. Assessment & Plan (08/25/2019 7:21 AM GRAPHICS INTERN): Hypertension is controlled. Continue current regimen. Assessment & Plan (08/21/2018 12:47 PM GRAPHICS INTERN): Hypertension is controlled. Continue current regimen. Assessment & Plan (08/15/2017 1:14 PM GRAPHICS INTERN): Hypertension is controlled. Continue current regimen. Assessment [...] therapy. Assessment & Plan (08/25/2019 7:21 AM GRAPHICS INTERN): Reviewed proper diet. Continue statin therapy. Assessment & Plan (08/21/2018 12:46 PM GRAPHICS INTERN): Reviewed proper diet. Continue statin therapy. Assessment & Plan (08/15/2017 1:14 PM GRAPHICS INTERN): Reviewed proper diet. Continue statin therapy. Routine [...] Date Resolved Date Skin tag 03/10/2018 03/10/2018 Encounters Date Type Department Care Team Description 08/07/2024 Nurse Triage [facility] [address] [facility] [address] [place] [phone] Armida Carlton RN 07/29/2024 2:56 PM GRAPHICS INTERN - 07/29/2024 11:59 PM GRAPHICS INTERN Hospital Encounter [facility] Cardiac Diagnostic Lab [address] [facility] 8th [place] [phone] Paroxysmal atrial fibrillation (CMS/HCC) (HCC) Discharge Disposition: Discharge to home or self care 07/23/2024 10:00 AM GRAPHICS INTERN Ancillary Procedure [facility] [address] [facility] [address] [place] [address] Paroxysmal atrial fibrillation (CMS/HCC) (HCC) 07/23/2024 8:45 AM GRAPHICS INTERN Office Visit [facility] Cardiology [address] [facility] [address] [place] [address] Jose Angel Lundberg MD Paroxysmal atrial fibrillation (CMS/HCC) (HCC) 07/15/2024 Telephone [facility] Cardiology [address] [place] [address] for Advanced Medicine 8th [place] [address] [place] [address] Terri Lopes 07/03/2024 11:35 AM GRAPHICS INTER[address] Lab [facility] [address] [place] [address] Fatigue, unspecified type 07/03/2024 10:15 AM GRAPHICS INTERN Office Visit [facility] [address] [place] [address] [address] [place] [address] Gaurang Sommers MD Essential hypertension (Primary Dx); Paroxysmal atrial fibrillation (CMS/HCC) (HCC); Snoring; Fatigue, unspecified type 06/30/2024 Nurse Triage [address] [place] [address] Ida Meeks RN 06/27/2024 10:01 AM GRAPHICS INTERN - 06/27/2024 11:59 PM GRAPHICS INTERN Hospital Encounter [facility] Radiology [facility] ([facility]) [address] [place] [address] Gaurang Sommers MD Tobacco abuse disorder Discharge Disposition: Discharge to home or self care 06/22/2024 Telephone [facility] ([facility]) [address] [place] [address] Marifer Jack RT 06/19/2024 10:14 AM GRAPHICS INTERN - 06/19/2024 11:59 PM GRAPHICS INTERN Hospital Encounter [facility] Breast Imaging [facility] ([facility]) [address] [place] [address] Screening mammogram, encounter for Discharge Disposition: Discharge to home or self care from Last 3 Months Immunizations Name Administration Dates Next Due IPV 04/02/2017,04/02/2017 Influenza, Quadrivalent, Spl it, Preservative Free, Intramuscular 03/31/2016,03/31/2015 Influenza, Trivalent, IM (MDV) 03/31/2014 Influenza, Unspecified 04/24/2019,2018,03/31/2018,03/31,04/02/2017,04/02/2017 Pfizer SARS-CoV-2 Monovalent Vaccination (12+ Yrs) PURPLE 07/19/2020,06/28/2020 Pfizer Sars-Cov-2 Bivalent V accination (12+ YRS) 04/21/2024 Tetanus toxoid, adsorbed 12/31/2005,12/31/2005 Surgical History Surgery Date Site/Laterality Comments ENDOMETRIAL ABLATION W/ NOVASURE SECTION COLONOSCOPY FLUORO GUIDED ASPIRATION OR INJECTION INTERMEDIATE JOINT LEFT 11/04/2018 Left FLUORO GUIDED ASPIRATION OR INJECTION INTERMEDIATE JOINT LEFT 05/21/2019 Left UPPER GASTROINTESTINAL ENDOSCOPY Medical History Medical History Date Comments Hyperlipidemia Colon polyp Chronic lung disease Anxiety SOB (shortness of breath) Atrial fibrillation (CMS/HCC) (HCC) Hypertension Diverticulitis COPD (chronic obstructive pulmonary disease) (HC C) Social History Tobacco Use Types Packs/Day Years [...] on file Legal Sex Female 8:44 PM GRAPHICS INTERN Gender Identity Female 07/12/2020 11:25 AM GRAPHICS INTERN Sexual Orientation Straight 07/12/2020 11 :25 AM GRAPHICS INTERN 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 Not on file Not on file Obstetrics History Para Term AB IAB SAB Ectopic Multiple Livin g Live Births 3 1 1 2 2 1 1 Date Outcome GA Total Labor Labor/2nd/3rd Weight Sex Type Anes PTL Lisa A1 A5 Name Clin 1997 SAB 1998 Term CS-Un spec Living 2000 Last Filed Vital Signs Vital Sign Reading Time Taken Comments Blood Pressure 112/84 07/23/2024 8:29 AM GRAPHICS INTERN Pulse 62 07/23/2024 8:29 AM GRAPHICS INTERN Temperature 36.1 C (97 F) 07/03/2024 10:03 AM GRAPHICS INTERN Respiratory Rate 18 07/03/2024 10:03 AM GRAPHICS INTERN Oxygen Saturation 98% 07/23/2024 8:29 AM GRAPHICS INTERN Inhaled Oxygen Concentration - - Weight 85.7 kg (189 lb) 07/23/2024 8:29 AM GRAPHICS INTERN Height 167.6 cm (5' 6 ) 07/23/2024 8:29 AM GRAPHICS INTERN Body Mass Index 30.51 07/23/2024 8:29 AM GRAPHICS INTERN Plan of Treatment Scheduled Procedures Name Priority Associated Diagnoses Date/Ti me COLONOSCOPY Dark stools Flecks of blood in stool Abdominal pain Health Maintenance Due Date Last Done Comments Pneumococcal vaccine <65 (1 of 2 - PCV) 1970 Hepatitis B Screening 1982 DTaP/Tdap/Td Vaccine (1 - Tdap) 01/01/2006 6, 12/31/2005 Zoster Vaccine (1 of 2) 2014 Cervical Cancer Screening 04/15/2021 04/15/2020, Covid-19 Vaccine (6 - 2023-2 5 season) 2024 04/21/2024, 10/10/2021, 04/28/2021, Additional history exists Regular Well Visit/Exam 18-64 06/18/2024, 03/05/2023, 03/27/2022, Additional history exists Depression Screening 12/23/2024 12/24/2023, 06/18/2023, 03/12/2023, Additional history exists Breast Cancer Screening-Mammogram 06/19/2025 06/19/2024, 06/05/2023, 05/01/2022, Additional history exists Colon Cancer Screening-Colonoscopy 11/05/2032 11/05/2022, 11/11/2017, 11/11/2017, Additional history exists Hepatitis C Screening Completed 02/13/2018 Colon Cancer Screening-CT Colonography Discontinued 11/05/2022, 11/11/2017, 11/11/2017, Additional history exists Colon Cancer Screening-DNA Stool Discontinued 11/05/2022, 11/11/2017, 11/11/2017, Additional history exists Colon Cancer Screening-FIT Discontinued 11/05, 11/11/2017, 11/11/2017, Additional history exists Colon Cancer Screening-Sigmoidoscopy Discontinued 11/05/2022, 11/11/2017, 11/11/2017, Additional history exists Influenza Vaccine Completed 04/16/2024, , 04/24/2019, Additional history exists Procedures Procedure Name Priority Date/Time Associated Diagnosis Comments TRANSTHORACIC ECHO (TTE) COMPLETE W DOPPLER/CF W CONTRAST Routine 07/29/2024 4:07 PM GRAPHICS INTERN Paroxysmal atrial fibrillation (CMS/HCC) (HCC) MCT - MOBILE CARDIAC TELEMETRY EVENT MONITOR Routine 07/23/2024 10:10 AM GRAPHICS INTERN Paroxysmal atrial fibrillation (CMS/HCC) (HCC) ECG 12-LEAD Routine 07/23/2024 8:32 AM GRAPHICS INTERN Paroxysmal atrial fibrillation (CMS/HCC) (HCC) EGFR Routine 07/03/2024 11:18 AM GRAPHICS INTERN Fatigue, unspecified type THYROID FUNCTION CASCADE Routine 07/03/2024 11:18 AM GRAPHICS INTERN Fatigue, unspecified type CBC WITHOUT DIFFERENTIAL Routine 07/03/2024 11:18 AM GRAPHICS INTERN Fatigue, unspecified type COMPREHENSIVE METABOLIC PANEL Routine 07/03/2024 11:18 AM GRAPHICS INTERN Fatigue, unspecified type CT LUNG CANCER SCREENING Schedule Routine, Read Routine (OP Routine) 06/27/2024 10:19 AM GRAPHICS INTERN Tobacco abuse disorder SCREENING MAMMOGRAM BILATERAL W JAMES Schedule Routine, Read Routine (OP Routine) 06/19/2024 10:34 AM GRAPHICS INTERN Screening mammogram, encounter for COLONOSCOPY 11/05/2022 8:55 [...] W DOPPLER/CF W CONTRAST (07/29/2024 4:07 PM GRAPHICS INTERN) LV EF 70-75 % CONS SCIMAGE Anatomical Region Laterality Modality Ultrasound 07/29/2024 3:01 PM GRAPHICS INTERN Narrative 07/29/2024 4:32 PM GRAPHICS INTERN [facility] Cardiac [place] [address] Transthoracic Echocardiographic Report Patient Name: LISA GALLO L : 1965 (59y 3m) Gender: F Study Date: 07/29/2024 03:01:40 PM Ht(Inch): 66 Wt(Lb): 188.93 BSA: 2 Associate Principal: Alesia Ballard Location: [facility] Order Provider: JOSE ANGEL LUDNBERG Heart Rate: 121 BMI: 30.49 BP: 135 / 108 Quality: The study images were of technically good quality. Ref Provider: JOSE ANGEL LUNDBERG PROCEDURES: Echocardiographic Report: ([id number], [id number]) Transthoracic complete echo with contrast, 2D, spectral [...] LA Volume BP 58.53 ml PV Accel [place] 1683.29 cm/sec2 LA Volume Index 29.26 ml/m2 [...] By: Eliseo Toscano MD 07/29/2024 4:31:39 PM GRAPHICS INTERN Electronically Signed By: Eliseo Toscano MD 07/29/2024 4:31:39 PM GRAPHICS INTERN Procedure Note Eliseo Toscano MD - 07/29/2024 [facility] Cardiac [place] [address] [place] [address] Transthoracic Echocardiographic Report Patient Name: LISA GALLO L : 1965 (59y 3m) Gender: F Study Date: 07/29/2024 03:01:40 PM Ht(Inch): 66 Wt(Lb): 188.93 BSA: 2 Associate Principal: Alesia Ballard Location: [facility] Order Provider:JOSE ANGEL LUNDBERG Heart Rate: 121 BMI: 30.49 BP: 135 / 108 Quality: The study images wereof technically good quality. Ref Provider: JOSE ANGEL LUNDBERG PROCEDURES: Echocardiographic Report: ([id number], [id number]) Transthoracic complete echo withcontrast, 2D, spectral and [...] LA Volume BP 58.53 ml PV Accel Fyyru5905.29 cm/sec2 LA Volume Index29.26 ml/m2 RV Base Dimen 2D 3.5 cm [ 2.5 - 4.2 ] TAPSE 1.52 cm [ 1.71 - 5.00 ] RA Area 12.00 cm/m2 [ 10.00 - 18.00 ] RA Vrqdjw24.66 ml RA Volume Index12.33 ml/m2 AoR Diam [...] By: Eliseo Toscano MD 07/29/2024 4:31:39 PM GRAPHICS INTERN Electronically Signed By: Eliseo Toscano MD 07/29/2024 4:31:39 PM GRAPHICS INTERN us Jose Angel Lundberg MD CV ECHO PROCEDURES Leigh l Result * [facility] Mobile Cardiac Telemetry Event Monitor (07/23/2024 10:10 AM GRAPHICS INTERN) Anatomical Region Laterality Modality Electrocardiogra phy 07/23/2024 10:0 0 AM GRAPHICS INTERN Narrative 08/03/2024 2:36 PM GRAPHICS INTERN Patient name: Lisa Gallo Date of test: 07/23/2024 Type of Test: Event Monitor ([facility]) Hospital #: [id number] Location: [facility] : 1965 Age: 59 Sex: F Ref Physician(s): JOSE ANGEL LUNDBERG MD Interpreted by: Rhonda Martinez MD Hook-Up Tech: [employer] Monitoring Service Diagnosis: Monitoring Service: [employer] Reason for Test: I48.0: Paroxysmal atrial fibrillation Monitor Used: Body [employer] ([facility]) [id number] Enrollment Period: Jul 25 - Jul 31, 2024 [employer] comments: Patient Instructions: Patient support person included in instructions Number of Transmissions Sent During Enrollment Period: 6 To obtain transmission tracing contact: [facility] [phone] Rhythm Summary: Afib longest duration: 00:53:48 Date [...] test: 07/23/2024 Type of Test: Event Monitor ([facility]) [facility] #: [id number] Location: [facility] : 1965 Age: 59 Sex: F Ref Physician(s): JOSE ANGEL LUNDBERG MD Interpreted by: Rhonda Martinez MD [facility]: [employer] Monitoring Service Diagnosis: Monitoring Service: [employer] Reason for Test: I48.0: Paroxysmal atrial fibrillation Monitor Used: [employer] ([facility]) [id number] Enrollment Period: Jul 25 - Jul 31, 2024 [email or web address] comments: Patient Instructions: Patient support person included in instructions Number of Transmissions Sent During Enrollment Period: 6 To obtain transmission tracing contact: [facility] [phone] Rhythm Summary: Afib longest duration: 00:53:48 Date [...] * ECG 12 lead (07/23/2024 8:32 AM GRAPHICS INTERN) us Jose Angel Lundberg MD ECG ORDERABLES Final R esult * eGFR (07/03/2024 11:18 AM GRAPHICS INTERN) eGFR >90 >=60 mL/min/1. 73 m2 Comment: [...] of Race in Diagnosing Kidney Disease, JASN 202). The CKD-EPI equation should not be used for patients with unstable renal function and has not been validated in children and those over 70. Current interpretive data was last reviewed 2021. Blood 07/03/2024 11:1 8 AM GRAPHICS INTERN 07/03/2024 12:19 PM GRAPHICS INTERN Gaurang Sommers MD LAB BLOOD ORDERABLES Final Re sult [facility] [place] [address] * Thyroid Function [place] (07/03/2024 11:18 AM GRAPHICS INTERN) TSH 0.93 0.30 - 4.20 mcIUnit/mL Blood 07/03/2024 11:1 8 AM GRAPHICS INTERN 07/03/2024 12:14 PM GRAPHICS INTERN Gaurang Sommers MD LAB BLOOD ORDERABLES Final Re sult Performing Organization Address [facility] Co de Phone Number [facility] Department [place] [address] * (ABNORMAL) CBC without differential (07/03/2024 11:18 AM GRAPHICS INTERN) WBC 9.1 3.8 - 9.9 K/cumm Hgb 14.2 11.9 - 15.5 g/dL [facility] Hct 42.8 35.6 - 45.5 % [facility] Plt 170 150 - 400 K/cumm [facility] MPV 12.4(H) 9.1 - 12.3 fL [facility] RBC 4.53 3.90 - 5.20 M/cumm [facility] MCV 94.5 81.3 - 96.4 fL [facility] MCH 31.3 27.1 - 33.3 pg [facility] MCHC 33.2 32.3 - 35.7 g/dL [facility] RDW CV 12.3 11.1 - 14.9 % [facility] RDW SD 42.5 35.7 - 48.1 fL [facility] NRBC abs 0.00 0.00 - 0.01 K/cumm [facility] Blood 07/03/2024 11:1 8 AM GRAPHICS INTERN 07/03/2024 12:14 PM GRAPHICS INTERN Gaurang Sommers MD LAB BLOOD ORDERABLES Final Re sult Performing Organization Address City/[facility]/ZIP Co de Phone Number [facility] [place] [address] * (ABNORMAL) Comprehensive metabolic panel (07/03/2024 11:18 AM GRAPHICS INTERN) Sodium 140 135 - 145 mmol/L Potassium, pl 4.9 3.3 - 4.9 mmol/L [facility] Comment:Hemolyzed; Potassium value may be falsely elevated by as much as 0.3-0.5 mmol/L. Suggest redraw and reanalysis. Chloride 105 97 - 110 mmol/L [facility] CO2 27 22 - 32 mmol/L [facility] Anion gap 8 2 - 15 mmol/L [facility] BUN 16 6 - 25 mg/dL [facility] Creatinine 0.71 0.60 - 1.10 mg/dL [facility] Glucose 95 70 - 199 mg/dL [facility] Comment: Interpretive Data Fasting glucose >/= 126 [...] classification and Diagnosis of Diabetes Diabetes Care 202; 46: S19-S40. Current interpretive data was last revised 2022. Calcium 9.6 8.5 - 10.3 mg/dL [facility] Bilirubin, total 0.5 0.1 - 1.2 mg/dL [facility] Protein, pl 7.4 6.5 - 8.5 g/dL [facility] Albumin 4.1 3.5 - 5.0 g/dL [facility] Alk phos 112 40 - 130 Units/L [facility] ALT 62(H) 7 - 45 Units/L [facility] AST 37 10 - 45 Units/L [facility] Comment:Hemolyzed; result ma y be falsely elevated Blood 07/03/2024 11:1 8 AM GRAPHICS INTERN 07/03/2024 12:14 PM GRAPHICS INTERN us Gaurang Sommers MD LAB BLOOD ORDERABLES Final Re sult [facility] Department [place] [address] * CT Lung Cancer Screening (06/27/2024 10:19 AM GRAPHICS INTERN) Anatomical Region Laterality Modality Chest N/A Computed Tomogra phy 06/28/2024 5:25 PM GRAPHICS INTERN Impressions 06/28/2024 5:25 PM GRAPHICS INTERN 1. LungRADS Category 2 (benign) . Recommend [...] Son Patrick M.D. Narrative 06/28/2024 5:25 PM GRAPHICS INTERN EXAMINATION: Lung cancer screening CT of the [...] screening) Electronically signed by: Son Patrick M.D. us Gaurang Sommers MD IMG CT PROCEDURES Final Resul t * Screening Mammogram Bilateral W James (06/19/2024 10:34 AM GRAPHICS INTERN) Anatomical Region Laterality Modality Breast Bilateral Mammography Narrative 06/19/2024 3:29 PM GRAPHICS INTERN Mammogram Technique: Bilateral Digital Breast Tomosynthesis, Bilateral C-view 2D Screening mammogram. Views obtained: bilateral craniocaudal and bilateral mediolateral oblique. Computer Aided Detection was performed. Mammogram Findings: The present examination has been compared to prior imaging studies performed at [facility] on 04/12/2021, 05/01/2022 and 06/05/2023. The breasts [...] compared to prior imaging studies performed at [facility] on 04/12/2021, 05/01/2022 and 06/05/2023. The breasts [...] Female Attending MD: Erin Camp M.D. Room: [facility] ENDOSCOPY ROOM 3 Note Status: Finalized [...] The scope was passed under direct vision.The [id number] endoscope was introduced through the anus [...] polypectomy, one hemostaticclip was successfully placed. Clip senior program planner: Arisoko. Therewas no bleeding at the end of [...] snare. Resected and retrieved. Clip wasplaced. Clip senior program planner: Arisoko. - One 3 to 4 mm polyp [...] On: 11/05/2022 8:55 AM Recognized by the [employer] for promoting quality in endoscopy us Erin Camp MD ENDOSCOPY PROCEDURES Final Res ult * Pap and High Risk HPV, reflex to Genotyping (04/15/2020 3:16 PM CDT) Swab 04/15/2020 3:16 PM CDT 04/15/2020 5:12 PM CDT Narrative PATHOLOGY [facility] - 04/25/2020 12:23 PM CDT EPIC results best viewed via link to PDF [facility] Danielle [facility] [place] [address] CYTOPATHOLOGY REPORT FINAL Patient Name: LISA GALLO Gender: F : 1965 (Age: 55) Address: [address] [place] [address] Hospital #: [id number] Service: PRODUCT DEVELOPMENT ECOLOGIST Location: [facility] Patient Type: [facility] Ref Lab Taken: 04/15/2020 Received: 04/15/2020 Accessioned: [...] 68. This HPV test was performed at [facility] in [place], [place] utilizing the Gen-Probe Aptima assay. 04/22/2020 14:30 By this signature, I attest that the above diagnosis is based upon my personal examination of the slides(and/or other material indicated in the diagnosis). Erick Milner DO Report Electronically Reviewed and Signed Out By Erick Milner DO 04/25/2020 12:23:05 KIMBERLY Matthews, CT(ASCP)MBCM Cervicovaginal Cytology (Pap Test) Disclaimer: The Pap [...] screening. The HPV test was performed by [facility], [address] [place] [address]. Report Images and scanned documents, if included only viewable in PDF version The performance characteristics of some immunohistochemical stains, in-situ hybridization and fluorescence in-situ hybridization tests and immunophenotyping by flow cytometry cited in this report (if any) were determined by the Surgical Pathology Department at [facility] as part of an ongoing quality assurance advisor program and in compliance with federally mandated [...] determined by the Surgical Pathology Department of [facility]. It has not been cleared or approved by the U. S. Food and Drug Administration. Leonila Jennings NP LAB CYTOLOGY ORDERABLES Final Result Performing Organization Address [facility]/ZIP Co de Phone Number PATHOLOGY [facility] 3rd Floor [place], [place] [phone] * Hepatitis C antibody (02/13/2018 2:41 PM CDT) Hep C Ab Nonreactive Nonreactive [facility] Comment: Interpretive Data Positive and greyzone results should be confirmed by a molecular method. If positive or greyzone, a second separately collected sample should be submitted for Hepatitis C Virus RNA. Detection and Quantitation by Real-Time Reverse Security Delivery Specialist-PCR.Current Interpretive data was last revised on 2016. Blood specimen (specimen) 02/13/2018 2:41 PM CDT 02/13/2018 5:08 PM CDT N[facility]ative [facility] - 02/14/2018 9:01 AM CDT Gaurang Sommers MD LAB MICROBIOLOGY - GENERAL OR DERABLES Edited Result - Final Performing Organization Address [facility]/ZIP Co de Phone Number [facility] Department [place] [address] from Last 3 Months or Most Recently Relevant to Health Maintenance [facility] Address: [address] [place] [address] [employer] Address: [address] [place] [address] [employer] Address: [address] [place] [address] [employer] Address: [address] [address] Advance Directives For more information, please contact: [phone] * Full Code (Latest Code Status on File) Date Activated Date Inactivated Comments 02/15/2023 3:35 PM 02/16/2023 7:41 PM * Full Code Date Activated Date Inactivated Comments 11/05/2022 7:46 AM 11/05/2022 2:17 PM * Full Code Date Activated Date Inactivated Comments 02/05/2022 12:16 PM 02/05/2022 5:25 PM * Full Code Date Activated Date Inactivated Comments 11/11/2017 8:10 AM 11/11/2017 11:26 AM Care Teams Dairy Tester Relationship Specialty Start Date End Date Gaurang Sommers MD [address] [facility] [address] [place] [address] PCP - General 09/28/16 Elvi Toussaint MD [address] [facility], [facility] [address] [place] [address] Consulting Physician Obstetrics and Gynecology 05/01/22 Deni Lay MD [id number] [place] [address] Surgeon Colon and Rectal Surgery 04/02/23
--- OUTSIDE RECORDS SUMMARY | 2024-08-07 16:52 | XMS_ITS | Encounter Summary ---
Author Organization [facility] Healthcare Address [address] [place] [address] Care Team Providers Care Hand Brim Ironer Name Role Phone Gaurang Sommers MD Primary Care Provider [phone] Elvi Toussaint MD Unavailable [phone] Deni Lay MD Unavailable [phone] Reason for Visit * Reason Onset Date Comments No Contact Made 08/07/2024 Encounter Details Date Type Department Care Team (Late st Contact Info) Description 08/07/2024 Nurse Triage [facility] [address] [facility] [address] [place] [address] Armida Carlton RN Social History Tobacco Use Types Packs/Day Years [...] on file Legal Sex Female 8:44 PM 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 LM on VM. Forwarding to office due to coming over as a red flag symptom due to lip swelling but it sounds like the swelling is due to an infected pimple around the lip but still forwarding due lip swelling listed as red flag symptom. Reason for Disposition Second attempt to contact caller AND no contact made. Phone number verified. Protocols used: No Contact or Duplicate Contact [id number] TABLE OPERATOR * Telephone Encounter - Carrie Alvarez RN - 08/07/2024 3:08 PM CST Regarding: Lip swelling ----- Message from Letty Macedo sent at 08/07/2024 3:08 PM POOL TABLE OPERATOR ----- Symptom Based Call Chief Complaint(s): Lip swelling Duration: today What type of symptom(s) is the patient experiencing? Red Flag. Is the patient concerned they are experiencing a medical emergency requiring an ambulance? No Additional Comments: Patient has an ingrown hair on the top of her lip or an infected pimple. Her lip is extremely swollen and very painful. She can tell there is pus underneath. She is alternating between Tylenol and Motrin. See 08/07/2024 [employer] message. Please advise. Does message need to be routed? Yes-Action Needed TABLE OPERATOR documented in this encounter Plan of Treatment Scheduled Procedures Name Priority Associated Diagnoses Date/Ti me COLONOSCOPY Dark stools Flecks of blood in stool Abdominal pain documented as of this encounter Visit Diagnoses Not on filedocumented in this encounter Care Teams Hand Brim Ironer Relationship Specialty Start Date End Date Gaurang Sommers MD [address] [facility] [address] [place], [place] [id number] PCP - General 09/28/16 Elvi Toussaint MD [address] [facility] [address] [place] [address] Consulting Physician Obstetrics and Gynecology 05/01/22 Deni Lay MD [address] [facility] [id number] [place], [place] [id number] Surgeon Colon and Rectal Surgery 04/02/23 documented as of this encounter
[2024-08-07 17:00] VITALS: BP 152/95; PULSE 75; RESP 18; TEMP 36; O2SAT 100
--- NOTE | 2024-08-07 18:33 | ED.GENADULT ---
HPI - General Adult General Chief complaint: Skin/Abscess/Foreign Body Stated complaint: lip swelling Source: patient Mode of arrival: ambulatory Limitations: no limitations History of Present Illness HPI narrative: Patient presents for evaluation of right-sided facial swelling and pain. Symptom onset 2 days ago. She had a hair just above the lip on the right side that she attempted to block. She developed redness and swelling thereafter. Her symptoms worsen today. She denies any fever, nausea, vomiting, or diarrhea. She states her is a pustule in place earlier today from which she expressed fluid. She does smoke. She took tylenol for her pain. She is not diabetic. Related Data Home Medications ?Medication ?Instructions ?Recorded ?Confirmed ?Last Taken ?Type apixaban 5 mg tablet (Eliquis) 5 mg PO DAILY 11/05/21 11/05/21 Unknown History atorvastatin 20 mg tablet 20 mg PO DAILY 11/05/21 11/05/21 Unknown History gabapentin 600 mg tablet 600 mg PO DAILY 11/05/21 11/05/21 Unknown History lisinopril 20 mg tablet 20 mg PO DAILY 11/05/21 11/05/21 Unknown History metoprolol tartrate 25 mg tablet 25 mg PO DAILY 11/05/21 11/05/21 Unknown History zolpidem 5 mg tablet 5 mg PO PRN PRN Insomnia 11/05/21 11/05/21 Unknown History Allergies Allergy/AdvReac Type Severity Reaction Status Date / Time No Known Allergies Allergy Verified 08/07/24 17:03 Review of Systems Review of Systems: CONSTITUTIONAL: Denies fever, chills, or sweats. EYES: Denies visual changes, redness, or discharge. ENT: Denies rhinorrhea, congestion, sore throat, or otalgia. CARDIOVASCULAR: Denies chest pain, palpitations, or edema. RESPIRATORY: Denies cough or dyspnea. GASTROINTESTINAL: Denies abdominal pain, nausea, vomiting, or diarrhea. GENITOURINARY: Denies dysuria or hematuria. SKIN: reports redness and swelling to the right side of her face, just above the right side of her upper lip MUSCULOSKELETAL: Denies back pain, joint pain, or myalgia. NEUROLOGIC: Denies headache, numbness, dizziness, or weakness. PSYCHIATRIC: Denies anxiety or depression. [facility], [facility] Past Medical History Medical History COPD (chronic obstructive pulmonary disease) High cholesterol A-fib Surgical History Surgical History No pertinent past surgical history Family History Family History Mother Family history non-contributory Social History Social History Smoking packs per day: 1 Smoking cigarettes per day: 20.0 Smoking status: Current every day smoker Tobacco type: cigarettes Gender identity (if verbalized by the patient): Female Spiritual care concerns: No Exam Narrative: GENERAL: Well-appearing, well-nourished, and in no acute distress. HEAD: Normocephalic, atraumatic. EYES: PERRLA and EOMI. ENT: Nares clear, no rhinorrhea or epistaxis. Mucous membranes moist. Oropharynx without tonsillar hypertrophy exudate or other lesions. Bilateral TMs pearly wilks nonbulging. There is swelling present to the right side of the upper left NECK: Supple. No adenopathy or masses. No carotid bruits or JVD CHEST: Clear to auscultation. No respiratory distress. No wheezes rales or rhonchi HEART: Regular rate and rhythm. No murmur heard. Normal peripheral pulses. ABDOMEN: Soft, nontender, nondistended, normal active bowel sounds. EXTREMITIES: Normal range of motion. No edema. SKIN: There is a 3 mm scabbed lesion to the skin above the upper lip on the right with associated swelling. There is no fluctuance. There is surrounding erythema. NEURO: No focal deficits. Alert and oriented x3. PSYCH: Normal mood and affect. Course Course Emergency Course: This is a 59-year-old female who presented for evaluation of swelling above the upper lip. Her exam is consistent with facial cellulitis. Will treat with Bactrim and cephalexin. Advised not to smoke. Tramadol for pain. Follow-up with primary provider. Go to the ER for worsening symptoms. Patient in agreement with plan of care. Level of Care: Express Care Visit Vital Signs Vital signs: Vital Signs Temperature 36.0 C L 08/07/24 17:00 Pulse Rate 75 08/07/24 17:00 Respiratory Rate 18 08/07/24 17:00 Blood Pressure 152/95 H 08/07/24 17:00 Pulse Oximetry 100 08/07/24 17:00 Oxygen Delivery Room Air 08/07/24 17:00 Temperature 36.0 C L 08/07/24 17:00 Pulse Rate 75 08/07/24 17:00 Respiratory Rate 18 08/07/24 17:00 Blood Pressure 152/95 H 08/07/24 17:00 Pulse Oximetry 100 08/07/24 17:00 Oxygen Delivery Room Air 08/07/24 17:00 Medical Decision Making Vital Signs Vital Signs: Vital Signs Temperature 36.0 C L 08/07/24 17:00 Pulse Rate 75 08/07/24 17:00 Respiratory Rate 18 08/07/24 17:00 Blood Pressure 152/95 H 08/07/24 17:00 Pulse Oximetry 100 08/07/24 17:00 Oxygen Delivery Room Air 08/07/24 17:00 Temperature 36.0 C L 08/07/24 17:00 Pulse Rate 75 08/07/24 17:00 Respiratory Rate 18 08/07/24 17:00 Blood Pressure 152/95 H 08/07/24 17:00 Pulse Oximetry 100 08/07/24 17:00 Oxygen Delivery Room Air 08/07/24 17:00 Discharge Plan Discharge Clinical Impression: Cellulitis of face Patient Disposition: Home, Self-Care Condition: Stable Instructions: Antibiotic Form, Cellulitis (ED) Patient Language: Italian Prescriptions: New sulfamethoxazole-trimethoprim [Bactrim DS] 800-160 mg tablet 1 tablet PO Q12H Qty: 20 0RF cephalexin 500 mg capsule 500 mg PO Q6H 10 Days Qty: 40 0RF tramadol 50 mg tablet 50 mg PO Q8H PRN (Reason: pain) Qty: 12 0RF No Action gabapentin 600 mg tablet 600 mg PO DAILY atorvastatin 20 mg tablet 20 mg PO DAILY lisinopril 20 mg tablet 20 mg PO DAILY zolpidem 5 mg tablet 5 mg PO PRN PRN (Reason: Insomnia) metoprolol tartrate 25 mg tablet 25 mg PO DAILY Eliquis 5 mg tablet 5 mg PO DAILY prednisone 50 mg tablet 50 mg PO DAILY 5 Days Qty: 5 0RF benzonatate 200 mg capsule 200 mg PO TID PRN (Reason: cough) Qty: 20 0RF Follow-up/Referrals: Matthieu,Gaurang Perry MD [Primary Care Provider] - Time of Disposition: 18:33
== END 2024-08-07 18:37 | disposition home or self-care (01) ==
PROVIDERS: Emergency Provider Nurse Practitioner; PCP Internal Medicine
DX: L03.211 Cellulitis of face (principal); F17.210 Nicotine dependence, cigarettes, uncomplicated; I48.91 Unspecified atrial fibrillation; J44.9 Chronic obstructive pulmonary disease, unspecified; E78.00 Pure hypercholesterolemia, unspecified; Z79.01 Long term (current) use of anticoagulants
CPT/HCPCS: 99213; G0463